=== PATIENT | female | born 1995 | race Caucasian/White ===

== ENCOUNTER 2019-04-24 07:39 | Emergency (ER) | payer BC, MEDICAID, SELFPAY ==
[2019-04-24 07:42] VITALS: BP 110/59; PULSE 96; RESP 16; TEMP 36.7; O2SAT 97; BMI 22.3
--- NOTE | 2019-04-24 07:45 | W.ED.DENTAL ---
HPI - Dental/Oral General: Chief complaint: Dental/Oral Stated complaint: DENTAL PAIN Time Seen by Provider: 04/24/19 07:45 Source: patient Mode of arrival: ambulatory Limitations: no limitations History of Present Illness: HPI Narrative: Patient is a 24-year-old female who presents to ED today with complaints of left lower wisdom tooth pain over the past 5 days. States she currently has a dentist appointment on the at [facility] but wants something for pain. MD Complaint: tooth pain Teeth map: 1. Onset (ago): day(s) Duration: constant Relieving factors: nothing Exacerbating factors: nothing Associated symptoms: Reports no associated symptoms; Denies ear or mastoid pain, fever(s) or painful swallowing Review of Systems Const: Denies: fever or chills Eyes: Denies: change in vision or blurry vision ENMT: Denies: throat pain, enlarged tonsils, painful swallowing, oral sores/lesions, ear pain, nasal discharge, nasal congestion or facial/sinus pain Card: Denies: chest pain, palpitations, irregular heart rhythm, edema, lightheadedness, syncope or pre-syncope Resp: Denies: shortness of breath, productive cough or chest congestion GI: Denies: nausea or vomiting Musc: Denies: joint pain Skin/Breast: Denies: rash Neuro: Denies: headache PFSH ED PFSH: Social History Smoking and tobacco status: current every day smoker Female Reproductive History: Date of last menstrual period: 04/23/19 Physical Exam Const: COMMON NORMALS: no apparent distress, average body habitus, oriented x3, no limitations, alert and well nourished HENMT: COMMON NORMALS: normocephalic, head/scalp atraumatic, hearing grossly normal bilaterally, external ears normal, EAC's normal, TM's normal bilaterally, external nose normal, nasal mucous membranes and turbinates normal, moist oral mucous membranes, oropharynx normal and gingiva normal HEAD & SCALP: normocephalic and atraumatic NOSE: external nose normal and nasal mucous membranes and turbinates normal EXTERNAL EAR: Yes external ears normal EXTERNAL AUDITORY CANAL: EAC's normal TYMPANIC MEMBRANE: TM's normal bilaterally THROAT: posterior oropharynx normal, tonsils normal and uvula midline OTHER: Patient has an impacted left lower molar. There is no surrounding gingival swelling. No drainage or abscess noted. No buccal mucosal swelling. Neuro: COMMON NORMALS: oriented x3 SENSORIUM/ORIENTATION: Yes alert Course Vital Signs: Vital signs: Vital Signs Temperature 98.1 F 04/24/19 07:42 Pulse Rate 96 04/24/19 07:42 Respiratory Rate 16 04/24/19 07:42 Blood Pressure 110/59 04/24/19 07:42 Pulse Oximetry 97 04/24/19 07:42 MDM - Dental/Oral MDM Narrative: Medical decision making narrative: I told patient I would be willing to write her for some diclofenac to help with her discomfort in addition I recommend using Orajel and warm compresses until she can get into her dentist. I told her I do not write for controlled pain medications for dental pain. Patient shortly after I left the room eloped from the ED. Discharge Plan Discharge Patient Disposition: Left Against Medical Advice Clinical Impression: Impacted tooth Condition: Stable Discharge Orders: Discharge Order (Routine); Ordered 04/24/19 Ordered By: Maria C Hebert Referrals: Alondra Lorenzo APN [Family Provider] - Joselo Fuentes FNP [Primary Care Provider] - Discharge Date/Time: 04/24/19 07:56 Coding Level of Care Code ED Clinical Services Professional for Peter Loja
--- NOTE | 2019-04-24 07:53 | PC.NURSE ---
After ED provider left pt's room pt left ER. Pt did not stop to explain to the nurse reasons for leaving. Pt did not sign AMA form
== END 2019-04-24 07:56 | disposition left against medical advice (07) ==
PROVIDERS: Emergency Provider Physician Assistant; Family Provider Nurse Practitioner; PCP Nurse Practitioner Family
DX: K01.1 Impacted teeth (principal); F17.200 Nicotine dependence, unspecified, uncomplicated; Z53.29 Procedure and treatment not carried out because of patient's decision for other reasons
CPT/HCPCS: 99281

== ENCOUNTER 2019-07-14 00:12 | Emergency (ER) | payer BC, MEDICAID, SELFPAY ==
[2019-07-14 00:13] VITALS: BP 114/53; PULSE 106; RESP 20; TEMP 36.9; O2SAT 100; BMI 20.5
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
== END 2019-07-14 01:18 | disposition left against medical advice (07) ==
PROVIDERS: Emergency Provider Emergency Medicine; Family Provider Nurse Practitioner; PCP Nurse Practitioner Family
DX: S06.0X0A Concussion without loss of consciousness, initial encounter (principal); S00.83XA Contusion of other part of head, initial encounter; Z53.21 Procedure and treatment not carried out due to patient leaving prior to being seen by health care provider; Y04.2XXA Assault by strike against or bumped into by another person, initial encounter; F17.210 Nicotine dependence, cigarettes, uncomplicated
CPT/HCPCS: 12345; 99282

== ENCOUNTER 2019-09-23 18:18 | Emergency (ER) | payer BC, MEDICAID, SELFPAY ==
[2019-09-23 19:29] LABS: Basophils % 0.5 %; Eosinophils # 0.1 10^3/uL (0.0-0.8); Eosinophils % 1.1 %; Hematocrit 38.7 % (37.0-47.0); Hemoglobin 12.8 g/dL (11.5-15.3); Lymphocytes # 2.2 10^3/uL (0.8-4.8); Lymphocytes % 24.6 %; Mean Corpuscular HGB Conc 33.1 g/dL (30.0-36.0); Mean Corpuscular Hemoglobin 31.4 pg (28.0-34.0); Mean Corpuscular Volume 94.9 fL (81-99); Monocytes # 0.5 10^3/uL (0.2-0.9); Monocytes % 5.6 %; Neutrophils # 6.01 10^3/uL (1.8-7.7); Neutrophils % 67.9 %; Nucleated Red Blood Cells % 0 %; Platelet Count 229 10^3/cmm (130-400); Red Blood Count 4.08 10^6/uL (4.1-5.3); Red Cell Distribution Width 11.6 % (12.1-15.1); White Blood Count 8.9 10^3/uL (4.0-10.0)
[2019-09-23 19:30] VITALS: BP 106/61; PULSE 86; RESP 14; TEMP 36.9; O2SAT 100; BMI 20.9
[2019-09-23 19:59] LABS: Alanine Aminotransferase 18 U/L (0-33); Albumin Level 4.7 g/dL (3.5-5.2); Alkaline Phosphatase 68 IU/L (35-105); Aspartate Amino Transferase 21 U/L (0-32); Blood Urea Nitrogen 13 mg/dL (6-20); Calcium 9.3 mg/dL (8.5-10.5); Carbon Dioxide 24 mmol/L (22-29); Chloride 101 mmol/L (98-107); Creatinine Clr Calc Pharmacy 150.5162; Globulin 2.4 g/dL (1.3-4.6); Glomerular Filtration Rate 151.6 mL/min (90-130); Glucose 68 mg/dL (65-115); Osmolality Calculated 278 mOsm/kg (285-295); Sodium 137 mmol/L (136-145); Total Bilirubin 0.2 mg/dL (0.15-1.2); Total Protein 7.1 g/dL (6.6-8.7)
[2019-09-23 20:09] LABS: Anion Gap 15.8 (5-19); Potassium 3.8 mmol/L (3.5-5.1)
== END 2019-09-23 22:20 ==
LOC: ER 18:27
PROVIDERS: Physician Assistant; Emergency Provider Emergency Medicine; PCP Nurse Practitioner
DX: Z53.21 Procedure and treatment not carried out due to patient leaving prior to being seen by health care provider (principal)
CPT/HCPCS: 36415; 76801; 80053; 84702; 85025; 86900; 99281

== ENCOUNTER 2019-10-11 12:03 | Emergency (ER) | payer BC, MEDICAID, SELFPAY ==
[2019-10-11 12:09] VITALS: BP 96/63; PULSE 100; RESP 18; TEMP 36.8; O2SAT 97; BMI 21.6
--- NOTE | 2019-10-11 12:14 | ED_ITS ---
HPI - Abdominal Pain General: Chief Complaint: Abdominal Pain Stated Complaint: 13 WEEKE PREG AND ABD PAIN Time Seen by Provider: 10/11/19 12:14 History of Present Illness: HPI narrative: 24-year-old female presents ER complaining of abdominal pain. 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 She states this began after she was lifting some heavy boxes at work most of the pain is in the lower abdomen suprapubic. She denies any dysuria urgency or frequency she has no nausea vomiting or diarrhea she has not had any constipation she not had any history of any GI issues she denies any difficulty with bowel bladder. She not recently been ill or had any cough or respiratory issues. MD elicited complaint: abdominal pain Pertinent past history: other (Recent heavy lifting) Onset (ago): day(s) Pain Consistency: constant Location: Suprapubic Severity: moderate Quality: aching Radiation: none Migration to: no migration Exacerbating factors: movement Relieving factors: rest Associated Symptoms: Reports GI cramping; Denies change in bowel habits, change in stool character, coffee ground emesis, constipation, diarrhea, dyspepsia, dysuria, fever(s), heartburn, hematochezia, hematuria, hematemesis, loose stools, melena, nausea, poor appetite and vomiting Related Data: Date of Last Menstrual Period: 06/11/19 Review of Systems Const: Denies: fever(s) ENMT: Denies: throat pain, ear or mastoid pain, nasal discharge or nasal congestion Card: Denies: chest pain, edema, dyspnea on exertion or orthopnea Resp: Denies: dyspnea, productive cough or non-productive cough GI: Reports: GI cramping; Denies: nausea, vomiting, hematemesis, coffee ground emesis, heartburn, diarrhea, constipation, change in bowel habits, change in stool character, hematochezia or melena : Denies: dysuria or hematuria Skin/Breast: Denies: rash or pruritus PFSH ED PFSH: Medical History (Updated 10/13/19 @ 06:46 by Derrick Musa DO) Asthma Surgical History (Updated 10/13/19 @ 06:46 by Derrick Musa DO) H/O knee surgery 2004-Performed in [place], [place] H/O oral surgery 2016- Performed in [place], [place] 2009- Performed in [place] Social History Smoking and tobacco status: current every day smoker e-cigarettes Female Reproductive History: Date of last menstrual period: 06/11/19 Physical Exam Const: COMMON NORMALS: no acute distress GENERAL APPEARANCE: cooperative and comfortable ORIENTATION/CONSCIOUSNESS: Yes awake, Yes oriented to person, Yes oriented to place and Yes oriented to time HENMT: COMMON NORMALS: normocephalic, atraumatic, hearing grossly normal bilaterally, external ears normal, EAC's normal, TM's normal bilaterally, Normal nasal mucous membranes and turbinates present, moist oral mucous membranes and oropharynx normal HEAD & SCALP: normocephalic and atraumatic NOSE: Normal nasal mucous membranes and turbinates present EXTERNAL EAR: Yes external ears normal EXTERNAL AUDITORY CANAL: EAC's normal TYMPANIC MEMBRANE: TM's normal bilaterally Eye: COMMON NORMALS: Equal, round and reactive pupils present, EOMs intact bilaterally, conjunctivae normal and no scleral icterus CONJUNCTIVA: Yes conjunctivae normal PUPIL: Yes Equal, round and reactive pupils present Neck/C-Spine: COMMON NORMALS: full ROM, no lymphadenopathy, supple and no JVD Lymph: LYMPHATIC: no lymphadenopathy noted and no lymphedema noted Resp: COMMON NORMALS: normal respiratory effort, No retractions, No use of accessory muscles and clear to auscultation bilaterally AUSCULTATION: clear to auscultation bilaterally Cardio: COMMON NORMALS: no JVD, regular rate, regular rhythm and No murmurs present (Cardio) RATE: regular rate RHYTHM: regular rhythm GI: COMMON NORMALS: Soft to palpation and No hepatosplenomegaly present AUSCULTATION: Yes normoactive bowel sounds PALPATION: Yes Soft to palpation, No Tenderness to palpation present (GI), No Guarding due to palpation present (GI) and Yes No hepatosplenomegaly present OTHER: Reproducible abdominal pain with palpation at the pubic symphysis. And with light pressure in the suprapubic area. Extremity: COMMON NORMALS: normal to inspection, capillary refill normal, no clubbing, cyanosis or edema, no calf tenderness and no pedal edema Neuro: SENSORIUM/ORIENTATION: Yes oriented to person, Yes oriented to place and Yes oriented to time Skin: COMMON NORMALS: no rashes or lesions noted GENERAL SKIN EXAM: no rashes or lesions noted Course Vital Signs: Vital signs: Vital Signs Temperature 98.2 F 10/11/19 12:09 Pulse Rate 80 10/11/19 15:03 Respiratory Rate 18 10/11/19 15:03 Blood Pressure 104/65 10/11/19 15:03 Pulse Oximetry 98 10/11/19 15:03 MDM - Abdominal Pain MDM Narrative: Medical decision making narrative: Initial attempt with Doppler heart tones unsuccessful. Bedside ultrasound done to confirm heart tones and intrauterine , findings showed twin gestation with heart activity in both in the 160s to 180s. Formal OB ultrasound done confirms twin gestation. Patient was not aware of this she was informed. As to her abdominal discomfort that she presented with that I think that is abdominal wall pain from heavy lifting urine is unremarkable. Encouraged patient to follow-up with her VAC PRESS OPERATOR as soon as she is able. Lab Data: Labs: Lab Results 10/11/19 10/11/19 10/11/19 Range/Units 12:50 12:50 12:50 WBC 9.5 (4.0-10.0) 10^3/ uL RBC 3.94 L (4.1-5.3) 10^6/u L Hgb 12.1 (11.5-15.3) g/dL Hct 36.8 L (37.0-47.0) % MCV 93.4 (81-99) fL MCH 30.7 (28.0-34.0) pg MCHC 32.9 (30.0-36.0) g/dL RDW 11.5 L (12.1-15.1) % Plt Count 227 (130-400) 10^3/c mm MPV 11.1 H (7.4-10.4) fL Neut % (Auto) 67.3 % Lymph % (Auto) 24.6 % [place] % (Auto) 5.7 % Eos % (Auto) 1.0 % Baso % (Auto) 0.3 % Neut # (Auto) 6.37 (1.8-7.7) 10^3/u L Lymph # (Auto) 2.3 (0.8-4.8) 10^3/u L [place] # (Auto) 0.5 (0.2-0.9) 10^3/u L Eos # (Auto) 0.1 (0.0-0.8) 10^3/u L Baso # (Auto) 0.0 (0.0-0.1) 10^3/u L Nucleated RBC % (a uto) 0 % Nucleated RBCs # 0.0 /100WBC Ser , Joey i-Qnt [id number] mIU/mL Urine Color Yellow (Yellow) Urine Appearance Hazy A (CLEAR) Urine pH 8 H (5-7) Ur Specific Gravit y 1.015 (1.005-1.030) Urine Protein Neg (Negative) Urine Glucose (UA) Norm (Normal) Urine Ketones Negative (Negative) Urine Blood Neg (Negative) Urine Nitrate Negative (Negative) Urine Bilirubin Neg (NEGATIVE) Prot Sulfosalicyli c Acd Negative (Negative) Urine Urobilinogen Norm (Negative) mg/dL Ur Leukocyte Bhargavi ase 2+ H (Negative) Urine RBC None (0-2) /hpf Urine WBC 5-10 H (0-5) /hpf Ur Squamous Epith Cells 15-25 H (0-5) Amorphous Sediment 1+ Urine Bacteria 1+ H (NONE) Discharge Plan Discharge Patient Disposition: Home Clinical Impression: Abdominal wall pain in suprapubic region, Twin gestation in first trimester Condition: Stable Prescriptions: New hydrocodone-acetaminophen 5-325 mg tablet 1 tab PO Q6H PRN (Reason: pain) Qty: 10 RF: 0 No Action Spiriva with HandiHaler 18 mcg capsule, w/inhalation device 1 cap INHALATION DAILY RF: 0 amoxicillin 500 mg capsule 500 mg PO TID 10 Days Qty: 30 RF: 0 albuterol sulfate [ProAir HFA] 90 mcg/actuation Hfa Aerosol Inhaler 1 - 2 puff INHALATION Q4H PRN (Reason: Shortness Of Breath) RF: 0 Gummies 400 mcg-35 mg- 25 mg-5 mg Tablet,Chewable 2 tab PO DAILY RF: 0 Tylenol Extra Strength 500 mg PO PRN RF: 0 Discharge Orders: Discharge Order (Routine); Ordered 10/11/19 Ordered By: Derrick Musa Referrals: Alondra Lorenzo TEA TREE FARMER [Primary Care Provider] - Discharge Diet: Advance as tolerated Discharge Activity: Increase activity as tolerated Activity Restrictions/Additional Instructions: Rest apply ice and heat to the lower abdominal wall as needed can use pain medication prescribed today. Recommend you follow-up with your VAC PRESS OPERATOR as soon as you are able to let him know about the twin gestation. Discharge Date/Time: 10/11/19 15:06 Coding Level of Care Code ED Llama Farmer for Peter Loja
[2019-10-11 13:03] VITALS: RESP 18
[2019-10-11] MEDS: morphine 4 mg/mL SDV 1 mL IVP (13:03)
[2019-10-11 13:09] LABS: Basophils % 0.3 %; Eosinophils # 0.1 10^3/uL (0.0-0.8); Hematocrit 36.8 % (37.0-47.0); Hemoglobin 12.1 g/dL (11.5-15.3); Lymphocytes # 2.3 10^3/uL (0.8-4.8); Lymphocytes % 24.6 %; Mean Corpuscular HGB Conc 32.9 g/dL (30.0-36.0); Mean Corpuscular Hemoglobin 30.7 pg (28.0-34.0); Mean Corpuscular Volume 93.4 fL (81-99); Mean Platelet Volume 11.1 fL (7.4-10.4); Monocytes # 0.5 10^3/uL (0.2-0.9); Monocytes % 5.7 %; Neutrophils # 6.37 10^3/uL (1.8-7.7); Neutrophils % 67.3 %; Nucleated Red Blood Cells % 0 %; Platelet Count 227 10^3/cmm (130-400); Red Blood Count 3.94 10^6/uL (4.1-5.3); Red Cell Distribution Width 11.5 % (12.1-15.1); White Blood Count 9.5 10^3/uL (4.0-10.0)
--- NOTE | 2019-10-11 13:57 | USR_ITS ---
PROCEDURE INFORMATION: Exam: US First Trimester, Transabdominal. Additional Gestation. Exam date and time: 10/11/2019 2:29 PM Age: 24 years old Clinical indication: complicated by abdominal or pelvic pain; Right lower quadrant; First trimester; Gestational age or lmp: By us> baby a 8wks 3 days, baby b 8wks 4 days; ; Patient HX: Lmp unclear; Additional info: Bedside US ppears to have twins TECHNIQUE: Imaging protocol: Real-time transabdominal obstetrical ultrasound of the maternal pelvis and a first trimester with image documentation. Additional gestation was evaluated. COMPARISON: US OB Limited [id number] 03/08/2016 11:00 AM FINDINGS: There is a twin living diamniotic intrauterine . Twin A has a crown-rump length of 1.9 cm corresponding to 8 weeks and 3 days. Twin A has a heart rate of 171 bpm. There is a yolk sac. Twin B has a crown-rump length of 2 cm corresponding to 8 weeks and 4 days. heart rate of 160 bpm is identified. There is a yolk sac. The gestational sac of Twin A is lower than that of twin B. No subchorionic bleed. No free fluid in the pelvis. US/US OB <= 14 wk fetus twins IMPRESSION: There is a twin living intrauterine .
[2019-10-11 14:29] LABS: Specific Gravity, Urine 1.015 (1.005-1.030); Urine Appearance Hazy (CLEAR); Urine Color Yellow (Yellow); pH Urine 8 (5-7)
[2019-10-11 14:30] LABS: Add Urine Culture? No; Add Urine Microscopic? YES; Amorphous Sediment Urine 1+; Bacteria Urine 1+; Bilirubin Urine Neg (NEGATIVE); Blood Urine Neg (Negative); Glucose Urine UA Norm (Normal); Ketones Urine Negative (Negative); Leukocyte Esterase Urine 2+ (Negative); Nitrate Urine Negative (Negative); Protein Urine Neg (Negative); Squamous Epithelial Cell Urine 15-25 (0-5); Sulfosalicylic Acid Urine Negative (Negative); Urobilinogen Urine Norm (Negative)
[2019-10-11 15:03] VITALS: BP 104/65; PULSE 80; RESP 18; O2SAT 98
== END 2019-10-11 15:06 | disposition home or self-care (01) ==
PROVIDERS: Emergency Provider Family Medicine; PCP Nurse Practitioner
DX: O26.891 Other specified pregnancy related conditions, first trimester (principal); R10.2 Pelvic and perineal pain; O30.001 Twin pregnancy, unspecified number of placenta and unspecified number of amniotic sacs, first trimester; O99.331 Smoking (tobacco) complicating pregnancy, first trimester; F17.290 Nicotine dependence, other tobacco product, uncomplicated; Z3A.14 14 weeks gestation of pregnancy
CPT/HCPCS: 12345; 76801; 76802; 81001; 81003; 84702; 85025; 96374; 99282; 99283; J2270

== ENCOUNTER 2019-11-14 13:55 | Inpatient (IN) | payer BC, MEDICAID, SELFPAY ==
[2019-11-14] VITALS (22 sets, daily range): BP systolic 78–122; BP diastolic 38–74; PULSE 74–115; RESP 15–24; TEMP 37.2–39.4; O2SAT 97–100; BMI 24.7
--- NOTE | 2019-11-14 14:25 | US_ITS ---
WS: [id number] Obstetrical ultrasound, limited. HISTORY: Vaginal bleeding with fever. COMPARISON: 10/11/2019. The twin intrauterine gestation is no longer present. Heterogeneous material now present in the endom etrium. Consistent with retained products of conception. No cardiac activity or poles are ident ified. There is a small amount of free fluid in the cul-de-sac. Small amount of retained products nicole ng the endocervical region. US/US pelvic with transvaginal IMPRESSION: 1. Incomplete spontaneous of the twin gestation. Twins were described on 10/11/2019. 2. No cardiac activity.
[2019-11-14] MEDS: morphine 4 mg/mL SDV 1 mL IVP ×2 (14:28→16:13)
[2019-11-14] MEDS: ondansetron 2 mg/ML SDV 2 mL 4 MG IVP (14:29)
[2019-11-14 14:36] LABS: Basophils % 0.2 %; Eosinophils % 0.2 %; Hematocrit 35.6 % (37.0-47.0); Hemoglobin 11.8 g/dL (11.5-15.3); Lymphocytes # 0.8 10^3/uL (0.8-4.8); Lymphocytes % 5.8 %; Mean Corpuscular HGB Conc 33.1 g/dL (30.0-36.0); Mean Corpuscular Volume 93.4 fL (81-99); Mean Platelet Volume 11.2 fL (7.4-10.4); Monocytes # 0.8 10^3/uL (0.2-0.9); Monocytes % 6.2 %; Neutrophils # 11.83 10^3/uL (1.8-7.7); Neutrophils % 87.2 %; Nucleated Red Blood Cells % 0 %; Platelet Count 184 10^3/cmm (130-400); Red Blood Count 3.81 10^6/uL (4.1-5.3); Red Cell Distribution Width 11.5 % (12.1-15.1); White Blood Count 13.6 10^3/uL (4.0-10.0)
--- NOTE | 2019-11-14 14:37 | W.ED.FEMALGU ---
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 She is also been having dysuria, hematuria, and vaginal bleeding. She denies a fever but was febrile on arrival to the emergency department. She went to the urgent care and they did a urinalysis and when she was told that she had a urinary tract infection. However because of her severe pain she was sent to the emergency department for evaluation. She denies nausea or vomiting MD elicited complaint: dysuria, UTI and vaginal bleeding Pertinent past history: pyelonephritis Associated symptoms: Reports abdominal pain and nausea; Deny headache(s) Date of Last Menstrual Period: 06/11/19 Review of Systems General: Reports: 10 or more systems reviewed and unremarkable except in HPI and below Const: Denies: fever(s), chills or body aches Eyes: Denies: change in vision or blurry vision ENMT: Denies: throat pain, enlarged tonsils, odynophagia, hoarseness, mouth pain or swelling of lips/tongue Card: Denies: palpitations, irregular heart rhythm, edema or swelling of feet/ankles Resp: Denies: dyspnea, productive cough or non-productive cough GI: Reports: abdominal pain and nausea; Denies: vomiting : Reports: flank pain, dysuria, urinary urgency, urinary hesitancy and vaginal bleeding; Denies: difficulty voiding or urinary frequency Musc: Denies: neck pain, back pain or extremity swelling Skin/Breast: Denies: rash, pruritus or erythema Neuro: Denies: headache(s), numbness in extremities or weakness in extremities Endo: Denies: polyuria, polydipsia or tired all the time PFS ED PFSH: Medical History Asthma Surgical History H/O knee surgery 2004-Performed in [place], [place] H/O oral surgery 2015- Performed in [place], [place] 2009- Performed in [place] Social History Smoking and tobacco status: current every day smoker e-cigarettes Female Reproductive History: Date of last menstrual period: 06/11/19 Physical Exam Const: COMMON NORMALS: average body habitus, patient oriented x3, no limitations, healthy appearing, alert and well nourished GENERAL APPEARANCE: in distress (painful distress) HENMT: COMMON NORMALS: normocephalic, atraumatic and moist oral mucous membranes HEAD & SCALP: normocephalic and atraumatic Neck/C-Spine: COMMON NORMALS: no meningeal signs and no JVD Resp: COMMON NORMALS: normal respiratory effort, No retractions, No use of accessory muscles, clear to auscultation bilaterally and percussion normal AUSCULTATION: clear to auscultation bilaterally PERCUSSION: percussion normal Cardio: COMMON NORMALS: no JVD, regular rhythm, S1 normal heart sound present, S2 normal heart sound present, No gallops present (Cardio), No clicks present (Cardio), No murmurs present (Cardio), No rub (Cardio) and Peripheral pulses 2+ throughout RATE: tachycardic RHYTHM: regular rhythm HEART SOUNDS: S1 normal heart sound present and S2 normal heart sound present PERIPHERAL PULSES: Peripheral pulses 2+ throughout GI: COMMON NORMALS: Normal to inspection, nondistended, normoactive bowel sounds present, Soft to palpation, non-tender, No hepatosplenomegaly present, no masses and no bruits PALPATION: Yes Soft to palpation and Yes No hepatosplenomegaly present : BLADDER/KIDNEY EXAM: Yes CVA tenderness on the right Back/Pelvis: GENERAL BACK: Yes CVA tenderness Extremity: COMMON NORMALS: normal to inspection, full ROM, capillary refill normal, no calf tenderness and no pedal edema Neuro: COMMON NORMALS: patient oriented x3 SENSORIUM/ORIENTATION: Yes alert MENINGEAL SIGNS: Yes no meningeal signs Course Reevaluation(s): Reevaluation #1: Discussed her lab and imaging findings with her. She is having a spontaneous , also has pyelonephritis. I advised that she be admitted for evaluation of both. 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 Time: 16:45 Consultations: Consultation #1: Dr. Wilde, supervisor metal furniture fabrication prevention specialist. He kindly accepted the patient to his service. He was able to convince the patient on the need for hospital admission Time: 17:07 Vital Signs: Vital signs: Vital Signs Temperature 98.9 F 11/14/19 22:53 Pulse Rate 93 11/14/19 23:53 Respiratory Rate 16 11/14/19 23:54 Blood Pressure 90/42 11/14/19 23:53 Pulse Oximetry 97 11/15/19 00:03 MDM - Female MDM Narrative: Medical decision making narrative: Patient is a 24-year-old female who unfortunately came into the emergency department having a spontaneous . She also has acute pyelonephritis. Getting her pain under control is extremely difficult and she required multiple intravenous narcotic medications and her pain was not still well controlled. Because of this and after conversation with the supervisor metal furniture fabrication she finally agreed to be admitted to the hospital as she had initially said she did not want to be admitted. She was given a dose of intravenous ceftriaxone. Medical Records: Attestation: I reviewed the patient's medical records. Lab Data: Attestation: I reviewed the patient's lab results. Labs: Lab Results 11/14/19 11/14/19 11/14/19 Range/Units 14:17 14:17 14:17 WBC 13.6 H (4.0-10.0) 10^3/ uL RBC 3.81 L (4.1-5.3) 10^6/u L Hgb 11.8 (11.5-15.3) g/dL Hct 35.6 L (37.0-47.0) % MCV 93.4 (81-99) fL MCH 31.0 (28.0-34.0) pg MCHC 33.1 (30.0-36.0) g/dL RDW 11.5 L (12.1-15.1) % Plt Count 184 (130-400) 10^3/c mm MPV 11.2 H (7.4-10.4) fL Neut % (Auto) 87.2 % Lymph % (Auto) 5.8 % Nance % (Auto) 6.2 % Eos % (Auto) 0.2 % Baso % (Auto) 0.2 % Neut # (Auto) 11.83 H (1.8-7.7) 10^3/u L Lymph # (Auto) 0.8 (0.8-4.8) 10^3/u L Nance # (Auto) 0.8 (0.2-0.9) 10^3/u L Eos # (Auto) 0.0 (0.0-0.8) 10^3/u L Baso # (Auto) 0.0 (0.0-0.1) 10^3/u L Nucleated RBC % (a uto) 0 % Nucleated RBCs # 0.0 /100WBC Sodium 132 L (136-145) mmol/L Potassium 3.7 (3.5-5.1) mmol/L Chloride 100 (98-107) mmol/L Carbon Dioxide 22 (22-29) mmol/L Anion Gap 13.7 (5-19) BUN 12 (6-20) mg/dL Creatinine 0.5 (0.5-0.9) mg/dL GFR Calculation 151.6 H (90-130) mL/min Glucose 117 H (65-115) mg/dL Calculated Osmolal ity 271 L (285-295) mOsm/k g Lactate 1.8 (0.5-2.2) mmol/L Calcium 8.5 (8.5-10.5) mg/dL Total Bilirubin 0.6 (0.15-1.2) mg/dL AST 16 (0-32) U/L ALT 14 (0-33) U/L Alkaline Phosphata se 67 (35-105) IU/L Total Protein 7.2 (6.6-8.7) g/dL Albumin 4.1 (3.5-5.2) g/dL Globulin 3.1 (1.3-4.6) g/dL Lipase 11 L (13-60) U/L Procalcitonin 0.06 (0-0.5) ng/mL Urine Color (Yellow) Urine Appearance (CLEAR) Urine pH (5-7) Ur Specific Gravit y (1.005-1.030) Urine Protein (Negative) Urine Glucose (UA) (Normal) Urine Ketones (Negative) Urine Blood (Negative) Urine Nitrate (Negative) Urine Bilirubin (NEGATIVE) Urine Urobilinogen (Negative) mg/dL Ur Leukocyte Bhargavi ase (Negative) Urine RBC (0-2) /hpf Urine WBC (0-5) /hpf Ur Squamous Epith Cells (0-5) Amorphous Sediment Urine Bacteria (NONE) Blood Type Rho(D) Type 11/14/19 11/14/19 Range/Units 15:26 16:40 WBC (4.0-10.0) 10^3/ uL RBC (4.1-5.3) 10^6/u L Hgb (11.5-15.3) g/dL Hct (37.0-47.0) % MCV (81-99) fL MCH (28.0-34.0) pg MCHC (30.0-36.0) g/dL RDW (12.1-15.1) % Plt Count (130-400) 10^3/c mm MPV (7.4-10.4) fL Neut % (Auto) % Lymph % (Auto) % Nance % (Auto) % Eos % (Auto) % Baso % (Auto) % Neut # (Auto) (1.8-7.7) 10^3/u L Lymph # (Auto) (0.8-4.8) 10^3/u L Nance # (Auto) (0.2-0.9) 10^3/u L Eos # (Auto) (0.0-0.8) 10^3/u L Baso # (Auto) (0.0-0.1) 10^3/u L Nucleated RBC % (a uto) % Nucleated RBCs # /100WBC Sodium (136-145) mmol/L Potassium (3.5-5.1) mmol/L Chloride (98-107) mmol/L Carbon Dioxide (22-29) mmol/L Anion Gap (5-19) BUN (6-20) mg/dL Creatinine (0.5-0.9) mg/dL GFR Calculation (90-130) mL/min Glucose (65-115) mg/dL Calculated Osmolal ity (285-295) mOsm/k g Lactate (0.5-2.2) mmol/L Calcium (8.5-10.5) mg/dL Total Bilirubin (0.15-1.2) mg/dL AST (0-32) U/L ALT (0-33) U/L Alkaline Phosphata se (35-105) IU/L Total Protein (6.6-8.7) g/dL Albumin (3.5-5.2) g/dL Globulin (1.3-4.6) g/dL Lipase (13-60) U/L Procalcitonin (0-0.5) ng/mL Urine Color Yellow (Yellow) Urine Appearance Cloudy (CLEAR) Urine pH 5 (5-7) Ur Specific Gravit y 1.010 (1.005-1.030) Urine Protein 1+ H (Negative) Urine Glucose (UA) Norm (Normal) Urine Ketones Negative (Negative) Urine Blood 2+ H (Negative) Urine Nitrate Positive H (Negative) Urine Bilirubin Neg (NEGATIVE) Urine Urobilinogen Norm (Negative) mg/dL Ur Leukocyte Bhargavi ase 2+ H (Negative) Urine RBC 0-4 H (0-2) /hpf Urine WBC Too numerous to c nt H (0-5) /hpf Ur Squamous Epith Cells 0-4 H (0-5) Amorphous Sediment Not Reportable Urine Bacteria 4+ H (NONE) Blood Type O Positive Rho(D) Type Positive Imaging Data: US OB: Radiologist's impression: [place] [address] Ultrasound Report Signed Patient: Suzie Arana #: [id number] : 1995Acct#:[id number] Age/Sex: 24 M Date: 11/14/19 Loc: [facility]/Bed: Attending Dr: Ordering Provider/Ordering MD: Shai Swayer [place], [facility] [place]: [place]/14/19 Procedure(s): US pelvic with transvaginal Accession Number(s): [id number] Report Number: [id number] WS: [id number] Obstetrical ultrasound, limited. HISTORY: Vaginal bleeding with fever. COMPARISON: 10/11/2019. The twin intrauterine gestation is no longer present. Heterogeneous material now present in the endometrium. Consistent with retained products of conception. No cardiac activity or poles are identified. There is a small amount of free fluid in the cul-de-sac. Small amount of retained products along the endocervical region. US/US pelvic with transvaginal IMPRESSION: 1. Incomplete spontaneous of the twin gestation. Twins were described on 10/11/2019. 2. No cardiac activity. Dictated By:Anum Rosado DO Signed By:Anum Rosado DOSigned Date/Time:11/14/19 1536 DD/ 1531 CT Abd/Pel: Radiologist's impression: [facility] [address] [place] [address] CT Scan Report Signed Patient: Suzie Arana #: [id number] : 1995Acct#:[id number] Age/Sex: 24 / FADM Date: 11/14/19 Loc: [facility]/Bed: Attending Dr: Ordering Provider/Ordering MD: Shai Sawyer MD, [facility] [place] of Service: 11/14/19 Procedure(s): CT abdomen pelvis w con* [id number] Accession Number(s): [id number] Report Number: [id number] PROCEDURE INFORMATION: Exam: CT Abdomen And Pelvis With Contrast Exam date and time: 11/14/2019 4:52 PM Age: 24 years old Clinical indication: Abdominal pain; Right; Patient HX: C/O fever, UTI, R flank pain - spontaneous @ 15wks; Additional info: UTI, right flank pain, ? pyelonephritis, spontaneous TECHNIQUE: Imaging protocol: Computed tomography of the abdomen and pelvis with intravenous contrast. Radiation optimization: All CT scans at this facility use at least one of these dose optimization techniques: automated exposure control; mA and/or kV adjustment per patient size (includes targeted exams where dose is matched to clinical indication); or iterative reconstruction. Contrast material: OMNI 300; Contrast volume: 95 ml; Contrast route: INTRAVENOUS (IV); COMPARISON: CT Abdomen/Pelvis Renal [id number] 03/26/2017 9:04 PM RADIATION DOSE METRICS: Total DLP (mGy-cm): 302.48 FINDINGS: Lungs: Dependent atelectasis in the right lung. Pleural space: No pleural effusion. Heart: Visualized portions of the heart are unremarkable. Liver: The liver is unremarkable. Gallbladder and bile ducts: The gallbladder is unremarkable. No biliary ductal dilatation. Pancreas: The pancreas is unremarkable. No pancreatic ductal dilatation. Spleen: The spleen is unremarkable. Adrenals: The right and left adrenal glands are unremarkable. Kidneys and ureters: Multiple areas of relative decreased enhancement with a striated appearance in the right kidney with surrounding perinephric inflammation, consistent with pyelonephritis. The left kidney is unremarkable. The left distal ureter is obscured by adjacent bowel loops and soft tissue structures. The visualized left ureter is unremarkable. Stomach and bowel: No obstruction. No mucosal thickening. Appendix: Appendix not definitely visualized. No inflammatory changes in the pericecal region however. Intraperitoneal space: Small amount of free fluid in the pelvis. No free intraperitoneal air. No loculated fluid collections to suggest an abscess. Vasculature: No evidence for aortic aneurysm or aortic dissection. Hepatic veins, portal veins, splenic vein, and SMV are patent. Lymph nodes: No lymphadenopathy. Bladder: Diffuse, moderate wall thickening of the bladder. Reproductive: Small amount of mildly hyperdense debris in the endometrial canal, findings may represent retained products of conception versus hemorrhage as noted on the ultrasound done earlier on 11/14/2019. Prominent vascular structures in the pelvis which may be related to recent . Multiple subcentimeter follicles in both right and left ovaries. Bones/joints: Bilateral pars defects at L5. Findings are stable. Soft tissues: No acute abnormality in the extra-abdominal soft tissues. CT/CT abdomen pelvis w con* [id number] IMPRESSION: 1. Findings consistent with pyelonephritis in the right kidney. 2. Diffuse, moderate wall thickening of the bladder, suspicious for cystitis. Recommend correlation with laboratory findings. 3. Small amount of free fluid in the pelvis. 4. Small amount of mildly hyperdense debris in the endometrial canal, findings may represent retained products of conception versus hemorrhage as noted on the ultrasound done earlier on 11/14/2019. No evidence for active bleeding. 5. Incidental/nonacute findings are listed in the report. Radiation Dose CTDIVOL = (mGy): DLP = 302.48 (mGy-cm) Dictated By:Kaleigh Nieves MD Signed By:Kaleigh Nieves MDSigned Date/Time:11/14/191725 DD/ 24 Discharge Plan Discharge Patient Disposition: Admitted As Inpatient Admit Provider: Blake Wilde Clinical Impression: Pyelonephritis affecting in first trimester, Missed Condition: Stable Interventions: ED Discharge Assessment Last Done: 11/14/19 22:50 ED Charges Last Done: 11/14/19 18:31 Discharge Date/Time: 11/14/19 22:30 Coding Level of Care Code ED Tool Maker for Chg Fwd Exam Comprehensive
[2019-11-14 14:50] LABS: Lactate (Lactic Acid level) 1.8 mmol/L (0.5-2.2)
[2019-11-14 14:55] LABS: Procalcitonin 0.06 ng/mL (0-0.5)
[2019-11-14 15:06] LABS: Alanine Aminotransferase 14 U/L (0-33); Albumin Level 4.1 g/dL (3.5-5.2); Alkaline Phosphatase 67 IU/L (35-105); Anion Gap 13.7 (5-19); Aspartate Amino Transferase 16 U/L (0-32); Blood Urea Nitrogen 12 mg/dL (6-20); Calcium 8.5 mg/dL (8.5-10.5); Carbon Dioxide 22 mmol/L (22-29); Chloride 100 mmol/L (98-107); Globulin 3.1 g/dL (1.3-4.6); Glomerular Filtration Rate 151.6 mL/min (90-130); Glucose 117 mg/dL (65-115); Lipase 11 U/L (13-60); Osmolality Calculated 271 mOsm/kg (285-295); Potassium 3.7 mmol/L (3.5-5.1); Sodium 132 mmol/L (136-145); Total Bilirubin 0.6 mg/dL (0.15-1.2); Total Protein 7.2 g/dL (6.6-8.7)
[2019-11-14 15:38] LABS: Add Urine Microscopic? YES; Bilirubin Urine Neg (NEGATIVE); Blood Urine 2+ (Negative); Glucose Urine UA Norm (Normal); Ketones Urine Negative (Negative); Leukocyte Esterase Urine 2+ (Negative); Nitrate Urine Positive (Negative); Protein Urine 1+ (Negative); Urine Appearance Cloudy (CLEAR); Urine Color Yellow (Yellow); Urobilinogen Urine Norm (Negative); pH Urine 5 (5-7)
[2019-11-14 15:40] LABS: Add Urine Culture? Yes; Bacteria Urine 4+; RBC Urine 0-4 /hpf (0-2); Squamous Epithelial Cell Urine 0-4 (0-5); WBC Urine TOO NUMEROUS TO CNT /hpf (0-5)
[2019-11-14] MEDS: cefTRIAXone 1,000 MG in sodium chloride 0.9% (plus) 50 ML 100 MG IV (15:55)
[2019-11-14] MEDS: sodium chloride 0.9% 1,000 ML 999 ML IV (15:55)
--- NOTE | 2019-11-14 16:32 | CTR_ITS ---
PROCEDURE INFORMATION: Exam: CT Abdomen And Pelvis With Contrast Exam date and time: 11/14/2019 4:52 PM Age: 24 years old Clinical indication: Abdominal pain; Right; Patient HX: C/O fever, UTI, R flank pain - spontaneous @ 15wks; Additional info: UTI, right flank pain, ? pyelonephritis, spontaneous TECHNIQUE: Imaging protocol: Computed tomography of the abdomen and pelvis with intravenous contrast. Radiation optimization: All CT scans at this facility use at least one of these dose optimization techniques: automated exposure control; mA and/or kV adjustment per patient size (includes targeted exams where dose is matched to clinical indication); or iterative reconstruction. Contrast material: OMNI 300; Contrast volume: 95 ml; Contrast route: INTRAVENOUS (IV); COMPARISON: CT Abdomen/Pelvis Renal [id number] 03/26/2017 9:04 PM RADIATION DOSE METRICS: Total DLP (mGy-cm): 302.48 FINDINGS: Lungs: Dependent atelectasis in the right lung. Pleural space: No pleural effusion. Heart: Visualized portions of the heart are unremarkable. Liver: The liver is unremarkable. Gallbladder and bile ducts: The gallbladder is unremarkable. No biliary ductal dilatation. Pancreas: The pancreas is unremarkable. No pancreatic ductal dilatation. Spleen: The spleen is unremarkable. Adrenals: The right and left adrenal glands are unremarkable. Kidneys and ureters: Multiple areas of relative decreased enhancement with a striated appearance in the right kidney with surrounding perinephric inflammation, consistent with pyelonephritis. The left kidney is unremarkable. The left distal ureter is obscured by adjacent bowel loops and soft tissue structures. The visualized left ureter is unremarkable. Stomach and bowel: No obstruction. No mucosal thickening. Appendix: Appendix not definitely visualized. No inflammatory changes in the pericecal region however. Intraperitoneal space: Small amount of free fluid in the pelvis. No free intraperitoneal air. No loculated fluid collections to suggest an abscess. Vasculature: No evidence for aortic aneurysm or aortic dissection. Hepatic veins, portal veins, splenic vein, and SMV are patent. Lymph nodes: No lymphadenopathy. Bladder: Diffuse, moderate wall thickening of the bladder. Reproductive: Small amount of mildly hyperdense debris in the endometrial canal, findings may represent retained products of conception versus hemorrhage as noted on the ultrasound done earlier on 11/14/2019. Prominent vascular structures in the pelvis which may be related to recent . Multiple subcentimeter follicles in both right and left ovaries. Bones/joints: Bilateral pars defects at L5. Findings are stable. Soft tissues: No acute abnormality in the extra-abdominal soft tissues. CT/CT abdomen pelvis w con* [id number] IMPRESSION: 1. Findings consistent with pyelonephritis in the right kidney. 2. Diffuse, moderate wall thickening of the bladder, suspicious for cystitis. Recommend correlation with laboratory findings. 3. Small amount of free fluid in the pelvis. 4. Small amount of mildly hyperdense debris in the endometrial canal, findings may represent retained products of conception versus hemorrhage as noted on the ultrasound done earlier on 11/14/2019. No evidence for active bleeding. 5. Incidental/nonacute findings are listed in the report. Radiation Dose CTDIVOL = (mGy): DLP = 302.48 (mGy-cm)
[2019-11-14] MEDS: iohexol 300 mg/mL 100 mL Btl IV (16:58)
[2019-11-14] MEDS: fentaNYL 50 mcg/mL INJ 2mL IVP ×2 (17:44→23:54)
--- NOTE | 2019-11-14 19:44 | PM.HP ---
Providers/Chief Complaint Primary Care Provider: Alondra Lorenzo APN Chief Complaint: urgent care sent/ uti/ preg/ temp 101 History of Present Illness Patient is a 24-year-old female, 6, para 4-0-1-4 with a known intrauterine of twins with an EDC of 05/19/2020 based on an 8-week ultrasound, which placed her at 13-2/7 weeks gestation today. She presented to the ER with a one-week history of right side/back pain. She had reported that after going to work at about 10:00 today, her pain significantly worsened. She stated that she had to leave work due to the pain and initially went to urgent care and was then sent to the ER. She states that she cespedes when she pees and if she feels like she needs to pee it makes her back hurt worse. She reports having a little spotting vaginally. She denied having any fevers at home. She stated she had not taken any medication before coming into the ER. She reports that deep breathing makes her back hurt worse. She denies any belly pain. During her evaluation in the ER, she was found to have UA findings consistent with infection. Based upon her symptoms and the urine findings, the ER physician believes she had pyelonephritis. She had been given Rocephin in the ER IV and had also been treated with morphine and fentanyl IV for the pain. During their evaluation she had also had a pelvic ultrasound performed. Based upon ultrasound there is no significant change in the size of the babies since her last ultrasound on 10/11/2019 and no cardiac activity was identified in either baby today. As a result, she was diagnosed with demise (missed ). Because of this I was consulted. At my evaluation, patient was minimally cooperative with answering questions. All she would basically state is that her back hurt and she needed something for the pain. She did give very short limited answers to questions. Review of Systems Const: Denies: fever(s) (Prior to admission) or chills (Prior to admission) ENMT: Denies: throat pain or nasal congestion Card: Denies: chest pain, palpitations or lightheadedness Resp: Denies: dyspnea, productive cough, non-productive cough or wheezing GI: Denies: abdominal pain, nausea or vomiting : Reports: dysuria, urinary frequency, urinary urgency and vaginal bleeding (Spotting); Denies: hematuria, genital pruritis or vaginal discharge Musc: Reports: back pain Neuro: Reports: headache(s); Denies: dizziness Psych: Denies: anxiety or depression Endo: Denies: polyuria, polydipsia or cold intolerance Jett/Lymph: Denies: easy bruising or easy bleeding Medications/Allergies Home Medications Medication Instructions Recorded Confirmed Last Taken Type PNV [id number] 2 tab PO DAILY 10/11/19 11/14/19 11/13/19 History [ Gummies] Allergies Allergy/AdvReac Type Severity Reaction Status Date / Time No Known Allergies Allergy Verified 11/14/19 13:26 PFSH Acute PFSH: Medical History Asthma Surgical History H/O knee surgery 2004-Performed in [place], [place] H/O oral surgery 2016- Performed in [place], [place] 2008- Performed in [place] Social History Smoking and tobacco status: current every day smoker e-cigarettes Female Reproductive History: Date of last menstrual period: 06/11/19 Vitals/I&O/Wt Last Vital Signs Temp 102.2 F H 11/14/19 14:02 Pulse 79 11/14/19 14:32 Resp 18 11/14/19 17:44 BP 111/56 11/14/19 14:32 Pulse Ox 98 11/14/19 17:44 11/14/19 11/14/19 11/14/19 06:59 14:59 22:59 Intake Total 1050 / 1050 Balance 1050 / 1050 Weight last 48 hrs Weight 140 lb Physical Exam Const: COMMON NORMALS: average body habitus, alert and well nourished GENERAL APPEARANCE: well developed and in distress (Mild emotional distress) ORIENTATION/CONSCIOUSNESS: Yes oriented to person, Yes oriented to place and Yes oriented to time Neck/C-Spine: GENERAL: Yes trachea midline Resp: COMMON NORMALS: normal respiratory effort and clear to auscultation bilaterally AUSCULTATION: clear to auscultation bilaterally Cardio: COMMON NORMALS: regular rate, regular rhythm, No gallops present (Cardio), No murmurs present (Cardio) and No rub (Cardio) RATE: regular rate RHYTHM: regular rhythm GI: COMMON NORMALS: Soft to palpation, No hepatosplenomegaly present and no masses AUSCULTATION: Yes normoactive bowel sounds PALPATION: Yes Soft to palpation, Yes Tenderness to palpation present (GI) (Mild suprapubic discomfort to palpation), Yes No hepatosplenomegaly present and No Hernia present : EXTERNAL FEMALE EXAM: No Hernia present OTHER: No uterine tenderness on abdominal palpation of the uterus Back/Pelvis: GENERAL BACK: Yes CVA tenderness (Right CVA/flank pain. No left CVA pain.) Extremity: COMMON NORMALS: no clubbing, cyanosis or edema and no calf tenderness Neuro: SENSORIUM/ORIENTATION: Yes alert, Yes oriented to person, Yes oriented to place and Yes oriented to time Psych: COMMON NORMALS: normal affect MOOD & AFFECT: Yes anxious and Yes tearful Skin: COMMON NORMALS: no rashes or lesions noted GENERAL SKIN EXAM: no rashes or lesions noted OTHER: Sweaty, damp skin Data : 11/14/19 14:17 11/14/19 14:17 Other Labs: WBC differential: Neutrophils 87.2%, lymphocytes 5.8%, monocytes 6.2% CMP: Calcium 8.5, total bili 0.6, AST 16, ALT 14, alk phos 67, total protein 7.2, albumin 4.1, lipase 11. Lactate: 1.8 Urinalysis: Cloudy, specific gravity 1.010, protein 1+, glucose negative, ketones negative, blood 2+, nitrate positive, leukocyte esterase 2+, RBC 0-4, WBC too numerous to count, bacteria 4+, squamous cells 0-4 Micro: Microbiology 11/14/19 14:17 Blood Culture - Preliminary Blood SPECIMEN COLLECTED 11/14/19 14:28 Blood Culture - Preliminary Blood SPECIMEN COLLECTED US OB: My impression: Twin intrauterine with no significant change in size compared to prior ultrasound from 10/11/2019. No cardiac activity identified. Gestational sacs are irregular in shape and smaller than seen on prior ultrasound. Consistent with missed . Radiologist's impression: Incomplete of twin gestation. No cardiac activity seen. CT Abd/Pel: Radiologist's impression: Findings consistent with pyelonephritis of the right kidney. A&P Assessment and plan (1) Pyelonephritis affecting in first trimester: Patient with urine findings consistent with infection with fever and right flank pain. CT findings suspicious for pyelonephritis. Based upon these findings she has been diagnosed with pyelonephritis. She initially received 1 dose of Rocephin in the ER. Continue with IV antibiotics (Kefzol and gentamicin). Urine culture has been performed and is pending. No evidence of stones seen on CT. Will treat with pain medication as needed. Status: Acute (2) Missed : Patient with known twin gestation at 13-2/7 weeks gestation today. Ultrasound shows demise of both twins (missed ). I briefly discussed with patient the findings on ultrasound and options of letting things pass on their own, medication to bring on miscarriage, or D&C. At this point, patient is undecided as to what she wants to do. Status: Acute Attestations Medical Necessity Statement*: Patient with pyelonephritis and parenteral narcotic pain medication for pain relief. She also has a missed of twins. Coding Level of Care Code Acute Electrical Instrument Technician for Peter Loja Diagnoses Pyelonephritis affecting in first trimester O23.01 Missed O02.1
[2019-11-14] MEDS: acetaminophen 500 mg Tablet 1000 MG PO (19:58)
[2019-11-14] MEDS: sodium chloride 0.9% 1,000 ML 200 ML IV (20:00)
[2019-11-14] MEDS: fentaNYL 50 mcg/mL INJ 2mL 75 MCG IVP (21:30)
--- NOTE | 2019-11-14 22:15 | PC.NURSE ---
vo obtained from Dr Wilde for tylenol, iv fluid bolus, and fentanyl. Per , hold on fentanyl until pt pain level reaches 8/10
--- NOTE | 2019-11-14 23:00 | PC.NURSE ---
MD in transportation escort room, MD orders to give the fentanyl and ativan at this time if patient desires, vitals reviewed with MD.
[2019-11-14] MEDS: dextrose 5%-sod chloride 0.45% 1,000 ML 125 ML IV (23:46)
--- NOTE | 2019-11-14 23:58 | PC.NURSE ---
Dr. Wilde in personal banking officer room, notified of BP and MD orders to give fentanyl for pain
[2019-11-15] VITALS (67 sets, daily range): BP systolic 0–96; BP diastolic 0–51; PULSE 82–156; RESP 16–17; TEMP 36.9–37.2; O2SAT 79–100
--- NOTE | 2019-11-15 03:20 | PC.NURSE ---
RN at bedside attempting to collect covid testing per protocol. Patient is refusing all testing and wearing a mask at this time.
[2019-11-15] MEDS: HYDROcodone-acetaminophen 5-325 mg Tablet PO ×3 (03:24→11:49)
[2019-11-15] MEDS: ceFAZolin 1,000 MG in sodium chloride 0.9% (plus) 50 ML 100 MG IV ×2 (06:20→11:47)
[2019-11-15 06:59] LABS: Basophils % 0.2 %; Eosinophils # 0.1 10^3/uL (0.0-0.8); Eosinophils % 0.4 %; Hematocrit 31.7 % (37.0-47.0); Hemoglobin 10.3 g/dL (11.5-15.3); Lymphocytes # 1.5 10^3/uL (0.8-4.8); Lymphocytes % 9.2 %; Mean Corpuscular HGB Conc 32.5 g/dL (30.0-36.0); Mean Corpuscular Hemoglobin 30.8 pg (28.0-34.0); Mean Corpuscular Volume 94.9 fL (81-99); Mean Platelet Volume 10.9 fL (7.4-10.4); Monocytes # 0.7 10^3/uL (0.2-0.9); Monocytes % 4.5 %; Neutrophils # 13.69 10^3/uL (1.8-7.7); Neutrophils % 85.1 %; Nucleated Red Blood Cells % 0 %; Platelet Count 170 10^3/cmm (130-400); Red Blood Count 3.34 10^6/uL (4.1-5.3); Red Cell Distribution Width 11.6 % (12.1-15.1); White Blood Count 16.1 10^3/uL (4.0-10.0)
[2019-11-15] MEDS: LORazepam 0.5 mg Tablet 1 MG PO (08:58)
[2019-11-15] MEDS: dextrose 5%-sod chloride 0.45% 1,000 ML 125 ML IV (08:59)
[2019-11-15 10:12] LABS: Amphetamines Screen Urine Negative (Negative); Barbiturates Screen Urine Negative (Negative); Benzodiazepines Screen Urine Negative (Negative); Cocaine Screen Urine Negative (Negative); Opiate Screen Urine Positive (Negative); PCP Screen Urine Negative (Negative); THC Screen Urine Positive (Negative)
[2019-11-15] MEDS: ketorolac 30 mg/mL INJ IVP (10:29)
--- NOTE | 2019-11-15 14:11 | PM.DCS ---
Discharge Providers Date of Admission: 11/14/19 19:58 Date of Discharge: November 15, 2019 Attending Provider at Admission: Blake Wilde MD Attending Provider at Discharge: Blake Wilde MD Primary Care Provider: Alondra Lorenzo APN Diagnoses at Discharge Discharge Diagnosis (1) Pyelonephritis affecting in first trimester: Status: Acute (2) Missed : Status: Acute Reason for Visit Reason for Visit: urgent care sent/ uti/ preg/ temp 101 Hospital Course Hospital Course: Patient was admitted to the hospital with pyelonephritis and had been found to have a missed of twins while in the ER. She was reporting significant back pain while in the ER and was initially treated with IV morphine and fentanyl. She was initially treated with Rocephin in the ER and on transfer to the floor was switched to cefazolin and gentamicin. She initially received [place] and fentanyl for breakthrough pain through the night. This morning, 11/14, patient reporting still having back pain. However, she has not had any of the IV fentanyl and is only been taking [place] but is taking it every 4 hours. She denied nausea or vomiting. She denied shortness of breath or chest pains. She denied lightheadedness or dizziness. She denied vaginal bleeding. She is wanting to go home. Physical exam: See below. Plan Urine culture is showing gram-negative rods. Antibiotics should have been covering for this. Patient has continued to have pain and has been taking pain medications on a regular basis every 4 hours. After examining her, she started reporting severe back pain needing something for pain again even though it is only been 2 hours since her last [place] dose. I discussed with her that recommendations are typically to stay until she is at least 24 hours afebrile with the back pain having resolved before switching to oral medications and potentially going home. However, with her not having any nausea and vomiting, she could potentially be switched to the oral medications and sent home, but with her degree of back pain I do not recommend that. I discussed with her that if she went home at this time, it would be AGAINST MEDICAL ADVICE. Patient states she is adamant that she does not want to stay in the hospital and wants to leave. She is signing out AGAINST MEDICAL ADVICE. Prescription for antibiotic will be called in to the pharmacy. Patient was informed that if she is unable to keep the antibiotics down, she continues to develop high fevers, she will need to come back to the hospital. I had discussed with her previously options in regards to the missed . She has stated that she wanted to go back to the doctor she had seen in [place] with a prior to take care of the missed . Physical Exam Const: COMMON NORMALS: no acute distress, average body habitus, alert and well nourished GENERAL APPEARANCE: well developed ORIENTATION/CONSCIOUSNESS: Yes oriented to person, Yes oriented to place and Yes oriented to time GI: COMMON NORMALS: Soft to palpation, non-tender, No hepatosplenomegaly present and no masses AUSCULTATION: Yes normoactive bowel sounds PALPATION: Yes Soft to palpation, Yes No hepatosplenomegaly present and No Hernia present : BLADDER/KIDNEY EXAM: Yes CVA tenderness EXTERNAL FEMALE EXAM: No Hernia present Back/Pelvis: GENERAL BACK: Yes CVA tenderness CVA tenderness: right Extremity: COMMON NORMALS: no calf tenderness Neuro: SENSORIUM/ORIENTATION: Yes alert, Yes oriented to person, Yes oriented to place and Yes oriented to time Psych: COMMON NORMALS: normal affect MOOD & AFFECT: Yes euthymic mood Skin: NARRATIVE SKIN EXAM: sweaty and warm Discharge Data Data Completed and Pending: Completed Studies During Hospitalization Category Date Time Status CT abdomen pelvis w con* [id number] Stat Cat Scan 11/14/19 16:32 Completed US pelvic with tr ansvaginal Urgent Ultrasound 11/14/19 14:25 Completed Pending at discharge Category Date Time Status Blood Culture Sta t Lab 11/14/19 14:17 Results Urine Culture Sta t Lab 11/14/19 15:26 Results Labs from last 24 hours 11/15/19 11/14/19 11/14/19 06:40 16:40 15:26 WBC 16.1 H RBC 3.34 L Hgb 10.3 L Hct 31.7 L MCV 94.9 MCH 30.8 MCHC 32.5 RDW 11.6 L Plt Count 170 MPV 10.9 H Neut % (Auto) 85.1 Lymph % (Auto) 9.2 [place] % (Auto) 4.5 Eos % (Auto) 0.4 Baso % (Auto) 0.2 Neut # (Auto) 13.69 H Lymph # (Auto) 1.5 [place] # (Auto) 0.7 Eos # (Auto) 0.1 Baso # (Auto) 0.0 Nucleated RBC % (a uto) 0 Nucleated RBCs # 0.0 Sodium Potassium Chloride Carbon Dioxide Anion Gap BUN Creatinine GFR Calculation Glucose Calculated Osmolal ity Lactate Calcium Total Bilirubin AST ALT Alkaline Phosphata se Total Protein Albumin Globulin Lipase Procalcitonin Urine Color Urine Appearance Urine pH Ur Specific Gravit y Urine Protein Urine Glucose (UA) Urine Ketones Urine Blood Urine Nitrate Urine Bilirubin Urine Urobilinogen Ur Leukocyte Bharg[place] ase Urine RBC Urine WBC Ur Squamous Epith Cells Amorphous Sediment Urine Bacteria Urine Opiates Scre en Positive H Ur Barbiturates Sc reen Negative Ur Phencyclidine S crn Negative Ur Amphetamines Sc reen Negative U Benzodiazepines Scrn Negative Urine Cocaine Scre en Negative U Marijuana (THC) Screen Positive H Blood Type O Positive Rho(D) Type Positive 11/14/19 11/14/19 11/14/19 15:26 14:17 14:17 WBC RBC Hgb Hct MCV MCH MCHC RDW Plt Count MPV Neut % (Auto) Lymph % (Auto) [place] % (Auto) Eos % (Auto) Baso % (Auto) Neut # (Auto) Lymph # (Auto) [place] # (Auto) Eos # (Auto) Baso # (Auto) Nucleated RBC % (a uto) Nucleated RBCs # Sodium 132 L Potassium 3.7 Chloride 100 Carbon Dioxide 22 Anion Gap 13.7 BUN 12 Creatinine 0.5 GFR Calculation 151.6 H Glucose 117 H Calculated Osmolal ity 271 L Lactate 1.8 Calcium 8.5 Total Bilirubin 0.6 AST 16 ALT 14 Alkaline Phosphata se 67 Total Protein 7.2 Albumin 4.1 Globulin 3.1 Lipase 11 L Procalcitonin 0.06 Urine Color Yellow Urine Appearance Cloudy Urine pH 5 Ur Specific Gravit y 1.010 Urine Protein 1+ H Urine Glucose (UA) Norm Urine Ketones Negative Urine Blood 2+ H Urine Nitrate Positive H Urine Bilirubin Neg Urine Urobilinogen Norm Ur Leukocyte Bhargavi ase 2+ H Urine RBC 0-4 H Urine WBC Too numerous to c nt H Ur Squamous Epith Cells 0-4 H Amorphous Sediment Not Reportable Urine Bacteria 4+ H Urine Opiates Scre en Ur Barbiturates Sc reen Ur Phencyclidine S crn Ur Amphetamines Sc reen U Benzodiazepines Scrn Urine Cocaine Scre en U Marijuana (THC) Screen Blood Type Rho(D) Type 11/14/19 14:17 WBC 13.6 H RBC 3.81 L Hgb 11.8 Hct 35.6 L MCV 93.4 MCH 31.0 MCHC 33.1 RDW 11.5 L Plt Count 184 MPV 11.2 H Neut % (Auto) 87.2 Lymph % (Auto) 5.8 [place] % (Auto) 6.2 Eos % (Auto) 0.2 Baso % (Auto) 0.2 Neut # (Auto) 11.83 H Lymph # (Auto) 0.8 [place] # (Auto) 0.8 Eos # (Auto) 0.0 Baso # (Auto) 0.0 Nucleated RBC % (a uto) 0 Nucleated RBCs # 0.0 Sodium Potassium Chloride Carbon Dioxide Anion Gap BUN Creatinine GFR Calculation Glucose Calculated Osmolal ity Lactate Calcium Total Bilirubin AST ALT Alkaline Phosphata se Total Protein Albumin Globulin Lipase Procalcitonin Urine Color Urine Appearance Urine pH Ur Specific Gravit y Urine Protein Urine Glucose (UA) Urine Ketones Urine Blood Urine Nitrate Urine Bilirubin Urine Urobilinogen Ur Leukocyte Bhargavi ase Urine RBC Urine WBC Ur Squamous Epith Cells Amorphous Sediment Urine Bacteria Urine Opiates Scre en Ur Barbiturates Sc reen Ur Phencyclidine S crn Ur Amphetamines Sc reen U Benzodiazepines Scrn Urine Cocaine Scre en U Marijuana (THC) Screen Blood Type Rho(D) Type Vitals: Last Vital Signs Temp 98.4 F 11/15/19 12:00 Pulse 83 11/15/19 11:56 Resp 17 11/15/19 07:27 BP 0/0 11/15/19 11:56 Pulse Ox 96 11/15/19 04:49 Discharge Plan Discharge Patient Disposition: Left Against Medical Advice Prescriptions: New hydrocodone-acetaminophen 5-325 mg Tablet 1 - 2 tab PO Q6H PRN (Reason: Moderate To Severe Pain) Qty: 30 RF: 0 ciprofloxacin HCl 500 mg tablet 500 mg PO BID 10 Days Qty: 20 RF: 0 Continued Gummies 400 mcg-35 mg- 25 mg-5 mg Tablet,Chewable 2 tab PO DAILY RF: 0 Discharge Diet: Regular Discharge Activity: Resume usual activity Activity Restrictions/Additional Instructions: Follow-up with your doctor in [place] within 1 week for treatment of the miscarriage. Finish all antibiotics Discharge Attestations Time Spent in Discharge Care*: less than 30 min Quality Metrics Clinical Quality Measures During this hospital stay, did patient experience: None Coding Level of Care Code Acute Map Compiler for Chg Fwd Diagnoses Pyelonephritis affecting in first trimester O23.01 Missed O02.1
--- NOTE | 2019-11-15 14:33 | PC.NURSE ---
AMA Dr Wilde came in to round on patient, agreed to discharge pt home with oral antibiotics and pain medications. Pt hit call light shortly after Dr Wilde left the room and was moaning and rolling in bed, requesting more pain medication. Nurse looked up MAR and reported to pt that pain meds were not due to be given again for approximately 2 more hours. Asked pt if she thought she would be okay going home. Discussed that pain meds will need to be taken as ordered, no sooner. Pt said I don't know, I just want to go home Nurse went and discussed pt's complaints of worsened pain. Dr Wilde went back to patient's room to reassess. discussed that he feels that it is in the patient's best interest to stay an additional night for pain control. Pt refused and stated she just wants to go home. Dr Wilde discussed that pt will have to sign out against medical advice at this point, discussed the likelihood of readmission, possibility that insurance may refuse to pay for hospital visit. Pt verbalized understanding and states she still wants to leave.
--- NOTE | 2019-11-15 15:34 | PC.NURSE ---
AMA Pt left floor via wheelchair at 1515
--- NOTE | 2019-11-20 13:15 | PC.RESP ---
Smoking Cessation information and a schedule of classes sent to patient.
== END 2019-11-15 15:15 | disposition left against medical advice (07) | DRG 779 ==
LOC: ER 14:06 → OBGYN 20:30
PROVIDERS: Family Medicine; Admitting Provider Obstetrics & Gynecology; PCP Nurse Practitioner; Visit Provider Obstetrics & Gynecology
DX: O02.1 Missed abortion (principal); O23.01 Infections of kidney in pregnancy, first trimester; N10 Acute pyelonephritis; Z53.29 Procedure and treatment not carried out because of patient's decision for other reasons; Z3A.13 13 weeks gestation of pregnancy; O30.001 Twin pregnancy, unspecified number of placenta and unspecified number of amniotic sacs, first trimester; O99.331 Smoking (tobacco) complicating pregnancy, first trimester; F17.290 Nicotine dependence, other tobacco product, uncomplicated
CPT/HCPCS: 12345; 36415; 74177; 76805; 76830; 76856; 80053; 80306; 81000; 81001; 83605; 83690; 84145; 85025; 86900; 87040; 87077; 87086; 87186; 87205; 96375; 99282; J0690; J0696; J1580; J1885; J2270; J2405; J3010; J7030; J7799; Q9967

== ENCOUNTER → 2020-04-07 15:00 | Outpatient (BNVA) | payer BC, MEDICAID, SELFPAY | PROVIDERS: PCP Nurse Practitioner; Visit Provider Nurse Practitioner Family | DX: Z20.2 Contact with and (suspected) exposure to infections with a predominantly sexual mode of transmission (principal) | CPT/HCPCS: 87491; 87591 ==

== ENCOUNTER → 2020-04-21 12:27 | Outpatient (BNVA) | payer BC, MEDICAID, SELFPAY | PROVIDERS: PCP Nurse Practitioner; Visit Provider Family Medicine | DX: N91.2 Amenorrhea, unspecified (principal); A54.9 Gonococcal infection, unspecified | CPT/HCPCS: 81025 ==

== ENCOUNTER 2020-08-12 09:00 | Emergency (ER) | payer BC, SELFPAY ==
[2020-08-12 09:04] VITALS: BP 117/67; PULSE 96; RESP 18; TEMP 36.6; O2SAT 98; BMI 23.0
--- NOTE | 2020-08-12 09:15 | US_ITS ---
WS: [id number] ULTRASOUND PELVIS TECHNIQUE: Transabdominal and transvaginal. ULTRASOUND PELVIS TECHNIQUE: Transabdominal. CLINICAL INFORMATION: pelvic pain : No. COMPARISON: November 14, 2019 FINDINGS: Uterus Orientation: Anteverted. Size: 8.1 cm x 4.8 cm. Masses: None. Cervix: Incidental nabothian cysts Endometrium: Normal. Endometrium thickness: 1.0 cm. Adnexa: Adnexa difficult to visualize due to bowel gas. No adnexal masses. Left ovarian cyst measurin g 1.0 x 0.9 x 0.8 cm consistent with hemorrhagic cyst. Right ovary size: 3.5 cm x 3.3 cm x 1.5 cm. Right ovary volume: 9.0 ccm3. Left ovary size: 4.2 cm x 2.4 cm x 2.1 cm. Left ovary volume: 11.2 ccm3 Free fluid: Present Other findings: None. US/US pelvic with transvaginal IMPRESSION: 1. Normal uterus. Endometrium measures 9.8 mm. 2. Incidental nabothian cysts in the cervix. 3. Normal vascularity to both ovaries. No adnexal masses. 4. Left ovarian hemorrhagic cyst/follicle measuring 1.0 x 0.9 x 0.8 cm 5. Small amount of free fluid in the cul-de-sac.
[2020-08-12] MEDS: sodium chloride 0.9% 1,000 ML 999 ML IV (09:32)
[2020-08-12 09:33] VITALS: RESP 18; O2SAT 98
[2020-08-12] MEDS: morphine 4 mg/mL SDV 1 mL IVP ×3 (09:33→12:05)
[2020-08-12] MEDS: ondansetron 2 mg/ML SDV 2 mL 4 MG IVP (09:33)
[2020-08-12 09:40] LABS: Basophils # 0.1 10^3/uL (0.0-0.1); Basophils % 0.4 %; Eosinophils # 0.3 10^3/uL (0.0-0.8); Eosinophils % 2.5 %; Hematocrit 44.1 % (37.0-47.0); Hemoglobin 14.8 g/dL (11.5-15.3); Lymphocytes # 1.7 10^3/uL (0.8-4.8); Lymphocytes % 12.8 %; Mean Corpuscular HGB Conc 33.6 g/dL (30.0-36.0); Mean Corpuscular Hemoglobin 30.8 pg (28.0-34.0); Mean Corpuscular Volume 91.9 fL (81-99); Mean Platelet Volume 11.3 fL (7.4-10.4); Monocytes # 0.5 10^3/uL (0.2-0.9); Monocytes % 3.9 %; Neutrophils # 10.81 10^3/uL (1.8-7.7); Nucleated Red Blood Cells % 0 %; Platelet Count 225 10^3/cmm (130-400); Red Cell Distribution Width 11.4 % (12.1-15.1); White Blood Count 13.5 10^3/uL (4.0-10.0)
--- NOTE | 2020-08-12 09:52 | W.ED.ABDPA2 ---
HPI - Abdominal Pain General: Chief Complaint: Abdominal Pain Stated Complaint: N/V/D ABD PAIN Time Seen by Provider: 08/12/20 09:09 History of Present Illness: HPI narrative: 25-year-old female presents emergency room complaining of periumbilical to right lower quadrant abdominal pain. She has had this for the last couple of days with nausea vomiting and diarrhea. When first came in the room she is bent over the bed she avoids any kind of movement. Her last meal was last night which she vomited. No hematochezia melena hematemesis or coffee-ground emesis no fever. She not have any dysuria urgency or frequency states she has had a problem with kidney stones in the past.She states she is not had a period for couple of months. Reviewing her old records there was a positive gonorrhea culture in late March of this year. MD elicited complaint: abdominal pain Pertinent past history: other (History of gonorrhea) Onset (ago): day(s) Pain Consistency: constant Location: Periumbilical Severity: severe Quality: cramping Radiation: none Migration to: RLQ Exacerbating factors: movement Relieving factors: rest Associated Symptoms: Reports anorexia, bloating, GI cramping and diarrhea; Denies belching, change in bowel habits, change in stool character, chills, coffee ground emesis, constipation, dyspepsia, dysuria, excessive flatus, fever(s), heartburn, hematochezia, hematuria, hematemesis, fecal incontinence, loose stools, melena, nausea, poor appetite, syncope and vomiting Related Data: Date of Last Menstrual Period: 06/11/19 Review of Systems Const: Denies: fever(s) or chills ENMT: Denies: throat pain, ear or mastoid pain, nasal discharge or nasal congestion Card: Denies: syncope Resp: Denies: dyspnea, productive cough or non-productive cough GI: Reports: diarrhea, bloating and GI cramping; Denies: nausea, vomiting, hematemesis, coffee ground emesis, heartburn, constipation, belching, excessive flatus, fecal incontinence, change in bowel habits, change in stool character, hematochezia or melena : Denies: dysuria or hematuria Skin/Breast: Denies: rash or pruritus PFS ED PFSH: Medical History (Updated 06/03/21 @ 13:52 by Derrick Musa DO) Asthma Surgical History H/O knee surgery 2005-Performed in [place], [place] H/O oral surgery 2016- Performed in [place], [place] 2009- Performed in [place] Social History Smoking and tobacco status: current every day smoker cigarettes and e-cigarettes Female Reproductive History: Date of last menstrual period: 06/11/19 Physical Exam Const: COMMON NORMALS: no acute distress GENERAL APPEARANCE: cooperative and comfortable ORIENTATION/CONSCIOUSNESS: Yes awake, Yes oriented to person, Yes oriented to place and Yes oriented to time HENMT: COMMON NORMALS: normocephalic, atraumatic, hearing grossly normal bilaterally and external ears normal HEAD & SCALP: normocephalic and atraumatic EXTERNAL EAR: Yes external ears normal Neck/C-Spine: COMMON NORMALS: no JVD Resp: COMMON NORMALS: normal respiratory effort, No retractions, No use of accessory muscles and clear to auscultation bilaterally AUSCULTATION: clear to auscultation bilaterally Cardio: COMMON NORMALS: no JVD, regular rate, regular rhythm and No murmurs present (Cardio) RATE: regular rate RHYTHM: regular rhythm GI: COMMON NORMALS: Soft to palpation and No hepatosplenomegaly present AUSCULTATION: Yes normoactive bowel sounds PALPATION: Yes Soft to palpation, No Tenderness to palpation present (GI), No Guarding due to palpation present (GI) and Yes No hepatosplenomegaly present : COMMON NORMALS: Yes no CVA tenderness BLADDER/KIDNEY EXAM: Yes no CVA tenderness EXTERNAL FEMALE EXAM: Yes normal appearance of the urethra SPECULUM EXAM - VAGINA: No vaginal bleeding and Yes Vaginal discharge present SPECULUM EXAM - CERVIX: Yes Cervical os closed, No Cervical bleeding, Yes Abnormal cervical discharge present and Yes Cervical tenderness present BIMANUAL EXAM - VAGINA & UTERUS: Yes Cervical tenderness present BIMANUAL EXAM - ADNEXA, OTHER: Yes tender on the left OB/EXTERNAL & SPECULUM: No vaginal bleeding Back/Pelvis: COMMON NORMALS: no CVA tenderness Extremity: COMMON NORMALS: normal to inspection, capillary refill normal, no clubbing, cyanosis or edema, no calf tenderness and no pedal edema Neuro: SENSORIUM/ORIENTATION: Yes oriented to person, Yes oriented to place and Yes oriented to time Skin: COMMON NORMALS: no rashes or lesions noted GENERAL SKIN EXAM: no rashes or lesions noted Course Vital Signs: Vital signs: Vital Signs Temperature 97.9 F 08/12/20 09:04 Pulse Rate 84 08/12/20 13:00 Respiratory Rate 16 08/12/20 12:07 Blood Pressure 111/53 08/12/20 13:00 Pulse Oximetry 99 08/12/20 13:00 MDM - Abdominal Pain Lab Data: Labs: Lab Results 08/12/20 08/12/20 08/12/20 Range/Units 09:34 09:34 09:34 WBC 13.5 H (4.0-10.0) 10^3/ uL RBC 4.80 (4.1-5.3) 10^6/u L Hgb 14.8 (11.5-15.3) g/dL Hct 44.1 (37.0-47.0) % MCV 91.9 (81-99) fL MCH 30.8 (28.0-34.0) pg MCHC 33.6 (30.0-36.0) g/dL RDW 11.4 L (12.1-15.1) % Plt Count 225 (130-400) 10^3/c mm MPV 11.3 H (7.4-10.4) fL Neut % (Auto) 80.0 % Lymph % (Auto) 12.8 % [place] % (Auto) 3.9 % Eos % (Auto) 2.5 % Baso % (Auto) 0.4 % Neut # (Auto) 10.81 H (1.8-7.7) 10^3/u L Lymph # (Auto) 1.7 (0.8-4.8) 10^3/u L [place] # (Auto) 0.5 (0.2-0.9) 10^3/u L Eos # (Auto) 0.3 (0.0-0.8) 10^3/u L Baso # (Auto) 0.1 (0.0-0.1) 10^3/u L Nucleated RBC % (a uto) 0 % Nucleated RBCs # 0.0 /100WBC Sodium 137 (136-145) mmol/L Potassium 3.7 (3.5-5.1) mmol/L Chloride 100 (98-107) mmol/L Carbon Dioxide 24 (22-29) mmol/L Anion Gap 16.7 (5-19) BUN 18 (6-20) mg/dL Creatinine 0.5 (0.5-0.9) mg/dL GFR Calculation 150.3 H (90-130) mL/min Glucose 95 (65-115) mg/dL Calculated Osmolal ity 286 (285-295) mOsm/k g Calcium 8.9 (8.5-10.5) mg/dL Total Bilirubin 0.3 (0.15-1.2) mg/dL AST 18 (0-32) U/L ALT 12 (0-33) U/L Alkaline Phosphata se 76 (35-105) IU/L Total Protein 8.2 (6.6-8.7) g/dL Albumin 5.0 (3.5-5.2) g/dL Globulin 3.2 (1.3-4.6) g/dL HCG, Qual Negative (Negative) Urine Color (Yellow) Urine Appearance (CLEAR) Urine pH (5-7) Ur Specific Gravit y (1.005-1.030) Urine Protein (Negative) Urine Glucose (UA) (Normal) Urine Ketones (Negative) Urine Blood (Negative) Urine Nitrate (Negative) Urine Bilirubin (Negative) Urine Urobilinogen (Negative) mg/dL Ur Leukocyte Bhargavi ase (Negative) Urine RBC (0-2) /hpf Urine WBC (0-5) /hpf Ur Squamous Epith Cells (0-5) /hpf Amorphous Sediment Urine Bacteria (NONE) /hpf Urine Mucus /hpf 08/12/20 Range/Units 10:09 WBC (4.0-10.0) 10^3/ uL RBC (4.1-5.3) 10^6/u L Hgb (11.5-15.3) g/dL Hct (37.0-47.0) % MCV (81-99) fL MCH (28.0-34.0) pg MCHC (30.0-36.0) g/dL RDW (12.1-15.1) % Plt Count (130-400) 10^3/c mm MPV (7.4-10.4) fL Neut % (Auto) % Lymph % (Auto) % [place] % (Auto) % Eos % (Auto) % Baso % (Auto) % Neut # (Auto) (1.8-7.7) 10^3/u L Lymph # (Auto) (0.8-4.8) 10^3/u L [place] # (Auto) (0.2-0.9) 10^3/u L Eos # (Auto) (0.0-0.8) 10^3/u L Baso # (Auto) (0.0-0.1) 10^3/u L Nucleated RBC % (a uto) % Nucleated RBCs # /100WBC Sodium (136-145) mmol/L Potassium (3.5-5.1) mmol/L Chloride (98-107) mmol/L Carbon Dioxide (22-29) mmol/L Anion Gap (5-19) BUN (6-20) mg/dL Creatinine (0.5-0.9) mg/dL GFR Calculation (90-130) mL/min Glucose (65-115) mg/dL Calculated Osmolal ity (285-295) mOsm/k g Calcium (8.5-10.5) mg/dL Total Bilirubin (0.15-1.2) mg/dL AST (0-32) U/L ALT (0-33) U/L Alkaline Phosphata se (35-105) IU/L Total Protein (6.6-8.7) g/dL Albumin (3.5-5.2) g/dL Globulin (1.3-4.6) g/dL HCG, Qual (Negative) Urine Color Yellow (Yellow) Urine Appearance Hazy A (CLEAR) Urine pH 5 (5-7) Ur Specific Gravit y 1.020 (1.005-1.030) Urine Protein Neg (Negative) Urine Glucose (UA) Norm (Normal) Urine Ketones Negative (Negative) Urine Blood Neg (Negative) Urine Nitrate Negative (Negative) Urine Bilirubin 1+ H (Negative) Urine Urobilinogen 1 H (Negative) mg/dL Ur Leukocyte Bhargavi ase Trace H (Negative) Urine RBC None (0-2) /hpf Urine WBC 0-4 H (0-5) /hpf Ur Squamous Epith Cells 10-15 H (0-5) /hpf Amorphous Sediment Not Reportable Urine Bacteria 1+ H (NONE) /hpf Urine Mucus 2+ /hpf Discharge Plan Discharge Patient Disposition: Home Clinical Impression: Acute pelvic inflammatory disease, Hydrosalpinx Condition: Stable Prescriptions: New doxycycline hyclate 100 mg capsule 100 mg PO BID 14 Days Qty: 28 RF: 0 hydrocodone-acetaminophen 5-325 mg tablet 1 tab PO Q6H PRN (Reason: pain) Qty: 20 RF: 0 Zofran 4 mg tablet 4 mg PO Q6H PRN (Reason: nausea and vomiting) Qty: 20 RF: 0 Discharge Orders: Discharge ED (Routine); Ordered 08/12/20 Ordered By: Derrick Musa Discharge Diet: Clear Liquid Discharge Activity: Increase activity as tolerated Patient Instructions: Opioid Safety Activity Restrictions/Additional Instructions: Follow-up tomorrow. Case management will work with you to get gynecology follow-up and a PCP follow-up. You need immediate follow-up on the pelvic infection on a longer-term basis she will need follow-up on abnormal kidney imaging findings. These findings were present previously and may be chronic but do require some follow-up. Coding Level of Care Code ED Brushing Operator for Peter Fwd Exam Comprehensive
[2020-08-12 09:54] LABS: Alanine Aminotransferase 12 U/L (0-33); Alkaline Phosphatase 76 IU/L (35-105); Anion Gap 16.7 (5-19); Aspartate Amino Transferase 18 U/L (0-32); Blood Urea Nitrogen 18 mg/dL (6-20); Calcium 8.9 mg/dL (8.5-10.5); Carbon Dioxide 24 mmol/L (22-29); Chloride 100 mmol/L (98-107); Globulin 3.2 g/dL (1.3-4.6); Glomerular Filtration Rate 150.3 mL/min (90-130); Glucose 95 mg/dL (65-115); Osmolality Calculated 286 mOsm/kg (285-295); Potassium 3.7 mmol/L (3.5-5.1); Sodium 137 mmol/L (136-145); Total Bilirubin 0.3 mg/dL (0.15-1.2); Total Protein 8.2 g/dL (6.6-8.7)
[2020-08-12 10:11] LABS: HCG, Serum Qual Negative (Negative)
[2020-08-12 10:32] VITALS: RESP 18; O2SAT 98
[2020-08-12 10:35] LABS: Add Urine Microscopic? YES; Bacteria Urine 1+ /hpf; Bilirubin Urine 1+ (Negative); Blood Urine Neg (Negative); Glucose Urine UA Norm (Normal); Ketones Urine Negative (Negative); Leukocyte Esterase Urine Trace (Negative); Mucus Urine 2+ /hpf; Nitrate Urine Negative (Negative); Protein Urine Neg (Negative); Urine Appearance Hazy (CLEAR); Urine Color Yellow (Yellow); Urobilinogen Urine 1 mg/dL (Negative); WBC Urine 0-4 /hpf (0-5); pH Urine 5 (5-7)
[2020-08-12 10:37] LABS: Add Urine Culture? No
--- NOTE | 2020-08-12 11:37 | CT_ITS ---
WS: [id number] CT ABDOMEN PELVIS TECHNIQUE: Contrast-enhanced CT of the abdomen and pelvis with coronal and sagittal reformatted image s. CLINICAL INFORMATION: abd pain COMPARISON: Ultrasound from earlier today. CT June 30, 2019 DLP: 843.[address] scans at [facility] use at least one of these dose optimization techniques: automat ed exposure control; mA and/or kV adjustment per patient size (includes targeted exams where dose is matched to clinical indication); or iterative reconstruction. FINDINGS: Heterogeneous enlarged uterus with fluid in the endometrial canal. Prominent pelvic varicosities. Thi s is similar to the prior examination. Peripherally enhancing left ovarian or corpus luteum cyst izabela uring 1.6 x 1.1 CCM. Small tubular fluid collection adjacent to the right ovary also seen on the ultrasound. This measures approximately 2.6 x 1.2 cm suspicious for hydrosalpinx. Small amount of free fluid in the cul-de-sac . Hepatomegaly. Enlargement of the right hepatic lobe. Spleen size upper limits of normal. Lung bases a re well aerated. Normal GE junction. Normal pancreatic parenchymal enhancement. Normal caliber abdomi nal aorta. Normal gallbladder. Portal vein and splenic vein are patent. Adrenal glands are normal. St riated right nephrogram suspicious for pyelonephritis. Correlation for UTI. Normal left nephrogram. T iny fat-containing umbilical hernia. Chronic bilateral pars defects. No anterolisthesis. CT/CT abdomen pelvis w con* [id number] IMPRESSION: 1. Heterogeneous uterine enhancement with pelvic varicosities and fluid in the endometrial canal. 2. Peripheral enhancing left corpus luteum cyst measuring 1.1 x 1.6 CCM. 3. Small tubular fluid collection suspicious for hydrosalpinx adjacent to the right ovary as seen on the ultrasound measuring 1.2 x 2.6 cm. Small amount of f ree fluid in the cul-de-sac. 4. Striated right nephrogram suspicious for pyelonephritis. Recommend correlat ion UTI. This was also present on the CT November 14, 2019 5. Hepatomegaly. 6. Chronic bilateral pars defects. Notified Derrick Musa DO at 08/12/2020 1:14 PM.
[2020-08-12] MEDS: ketorolac 30 mg/mL INJ 60 MG IVP (12:04)
[2020-08-12 12:05] VITALS: RESP 18; O2SAT 98
[2020-08-12 12:07] VITALS: BP 109/51; PULSE 87; RESP 16; O2SAT 100
[2020-08-12] MEDS: iohexol 300 mg/mL 100 mL Btl IV (12:47)
[2020-08-12 13:00] VITALS: BP 111/53; PULSE 84; O2SAT 99
[2020-08-12] MEDS: cefTRIAXone 1,000 MG in lidocaine 1% 2.1 ML 2 MG IM (13:56)
--- NOTE | 2020-08-12 15:22 | DCPLANNER ---
assistant sales manager was asked to speak with patient about getting established with a primary care physician. assistant sales manager called [facility], spoke with Glenda, a follow up appointment was scheduled for Thursday, August 13, 2020 at 8:[address] Barajas. assistant sales manager called patient and gave patient the appointment information.
--- NOTE | 2020-08-13 09:28 | PC.NURSE ---
Written orders recevied by Dr Musa for prescription for Flagyl 500mg 1 tab PO BID for 10 days. Prescription called into [place] pharmacy per pt request.
--- NOTE | 2020-08-13 11:15 | DCPLANNER ---
Patient had appointment scheduled for 08.13.[address] Barajas at [facility] - patient did not attend appointment.
== END 2020-08-12 14:19 | disposition home or self-care (01) ==
PROVIDERS: Emergency Provider Family Medicine
DX: N73.0 Acute parametritis and pelvic cellulitis (principal); N70.11 Chronic salpingitis; F17.210 Nicotine dependence, cigarettes, uncomplicated
CPT/HCPCS: 74177; 76830; 76856; 80053; 81001; 84703; 85025; 87210; 87491; 87591; 96361; 96374; 96375; 96376; 99284; J0696; J1885; J2270; J2405; J2930; J7030; Q9967

== ENCOUNTER 2021-01-30 20:33 | Emergency (ER) | payer BC, MEDICAID, SELFPAY ==
[2021-01-30 20:48] VITALS: BP 114/73; PULSE 96; RESP 18; TEMP 36.8; O2SAT 98
[2021-01-30 21:04] VITALS: BP 92/79; PULSE 117; RESP 20; TEMP 36.7; O2SAT 97
--- NOTE | 2021-01-30 21:06 | USR_ITS ---
PROCEDURE INFORMATION: Exam: US Nonobstetric Pelvis; Complete Exam date and time: 01/30/2021 9:06 PM Age: 25 years old Clinical indication: Pelvic pain; Patient HX: PT became very upset during exam, unable to consent for further imaging transvaginally. ED physician informed TECHNIQUE: Imaging protocol: Transabdominal pelvic nonobstetric ultrasound. Complete exam. Real time ultrasound with image documentation. COMPARISON: US pelvic with transvaginal 08/12/2020 9:48 AM FINDINGS: Uterus: The uterus measures 9.2 x 6.3 x 5.5 cm. The myometrium is normal. The endometrium measures 3-4 mm which is normal. Right ovary/adnexa: The right ovary measures 2.5 x 1.5 x 1.7 cm and has normal size and echogenicity and is normally perfused as seen on color Doppler with spectral analysis. Left ovary/adnexa: The left ovary measures 2.6 x 1.9 x 1.3 cm and is unremarkable and normally perfused as seen on color Doppler with spectral analysis. Intraperitoneal space: No free fluid. Urinary bladder: Normal. Other findings: No cyst or mass. US/US pelvic complete* [id number] IMPRESSION: Unremarkable uterus and ovaries. Radiation Dose CTDIVOL = (mGy): DLP = (mGy-cm)
[2021-01-30 21:29] VITALS: RESP 24; O2SAT 99
[2021-01-30] MEDS: HYDROmorphone 1 mg/mL INJ 1 mL IVP (21:29)
[2021-01-30] MEDS: ondansetron 2 mg/ML SDV 2 mL 4 MG IVP (21:29)
[2021-01-30] MEDS: sodium chloride 0.9% 1,000 ML 999 ML IV (21:30)
[2021-01-30 21:41] LABS: Basophils # 0.1 10^3/uL (0.0-0.1); Basophils % 0.6 %; Eosinophils # 0.1 10^3/uL (0.0-0.8); Eosinophils % 0.8 %; Hematocrit 34.1 % (37.0-47.0); Hemoglobin 12.1 g/dL (11.5-15.3); Lymphocytes # 2.7 10^3/uL (0.8-4.8); Lymphocytes % 31.5 %; Mean Corpuscular HGB Conc 35.5 g/dL (30.0-36.0); Mean Corpuscular Hemoglobin 31.2 pg (28.0-34.0); Mean Corpuscular Volume 87.9 fl (81-99); Mean Platelet Volume 10.9 fL (7.4-10.4); Monocytes # 0.7 10^3/uL (0.2-0.9); Monocytes % 7.5 %; Neutrophils % 59.3 %; Nucleated Red Blood Cells % 0 %; Platelet Count 231 10^3/cmm (130-400); Red Blood Count 3.88 10^6/uL (4.1-5.3); Red Cell Distribution Width 11.8 % (12.1-15.1); White Blood Count 8.6 10^3/uL (4.0-10.0)
--- NOTE | 2021-01-30 21:55 | W.ED.ABDPA2 ---
HPI - Abdominal Pain General: Chief Complaint: Abdominal Pain Stated Complaint: 7 Weeks Preg\Sharp ABD Pains Time Seen by Provider: 01/30/21 20:52 Source: patient Mode of arrival: ambulatory Limitations: no limitations History of Present Illness: HPI narrative: 25-year-old female who states she is currently 7 weeks this is her fifth she had no other difficulties with her previous 4 pregnancies. States that starting today she is having severe suprapubic abdominal pain states pain is sharp in nature rates an 8 out of 10 denies any vaginal bleeding or discharge denies any fever denies any nausea vomiting denies any worsening improving factors. Associated Symptoms: Denies chills, dysuria and fever(s) Related Data: Date of Last Menstrual Period: 06/11/19 Review of Systems Const: Denies: fever(s), chills, body aches or change in appetite Eyes: Denies: blurry vision or eye discomfort ENMT: Denies: throat pain or dental pain Card: Denies: chest pain Resp: Denies: dyspnea GI: Reports: abdominal pain : Denies: dysuria Musc: Denies: neck pain or back pain Skin/Breast: Denies: rash Neuro: Denies: headache(s) Psych: Denies: depression Jett/Lymph: Denies: easy bruising All/Imm: Denies: urticaria PFSH ED PFSH: Medical History (Updated 01/30/21 @ 23:30 by Sandip Preston MD) Asthma Surgical History H/O knee surgery 2004-Performed in [place], [place] H/O oral surgery 2016- Performed in [place], [place] 2008- Performed in [place] Social History Smoking and tobacco status: current every day smoker cigarettes and e-cigarettes Female Reproductive History: Date of last menstrual period: 06/11/19 : 5 Physical Exam Const: COMMON NORMALS: no acute distress, patient oriented x3 and healthy appearing HENMT: COMMON NORMALS: normocephalic and atraumatic HEAD & SCALP: normocephalic and atraumatic Eye: COMMON NORMALS: Equal, round and reactive pupils present and EOMs intact bilaterally PUPIL: Yes Equal, round and reactive pupils present Neck/C-Spine: COMMON NORMALS: full ROM and supple Chest: COMMONS NORMALS: normal inspection of the chest and normal palpation of entire chest wall Resp: COMMON NORMALS: normal respiratory effort, No retractions, No use of accessory muscles and clear to auscultation bilaterally AUSCULTATION: clear to auscultation bilaterally Cardio: COMMON NORMALS: regular rate, regular rhythm and No murmurs present (Cardio) RATE: regular rate RHYTHM: regular rhythm GI: COMMON NORMALS: Normal to inspection, nondistended, normoactive bowel sounds present, Soft to palpation, non-tender and no masses PALPATION: Yes Soft to palpation OTHER: suprapubic tenderness Extremity: COMMON NORMALS: normal to inspection and full ROM Neuro: COMMON NORMALS: patient oriented x3, moves all extremities and no focal motor deficits Psych: COMMON NORMALS: mental status grossly normal, Normal thought process present and cooperative THOUGHT PROCESS: Normal thought process present Skin: COMMON NORMALS: no rashes or lesions noted and no wounds GENERAL SKIN EXAM: no rashes or lesions noted Course Vital Signs: Vital signs: Vital Signs Temperature 98.1 F 01/30/21 21:04 Pulse Rate 117 H 01/30/21 21:04 Respiratory Rate 24 H 01/30/21 21:29 Blood Pressure 92/79 01/30/21 21:04 Pulse Oximetry 99 01/30/21 21:29 MDM - Abdominal Pain MDM Narrative: Medical decision making narrative: pt presents here with abd pain and ct showed ovarian cyst. pt got up from her room and ripped out her iv and left when her boyfriend arrive. I was unable to speak to her before she left. she is not Lab Data: Labs: Lab Results 01/30/21 01/30/21 01/30/21 21:29 21:29 21:29 WBC 8.6 10^3/uL 10^3/ uL (4.0-10.0) RBC 3.88 10^6/uL L 10 ^6/uL (4.1-5.3) Hgb 12.1 g/dL g/dL (11.5-15.3) Hct 34.1 % L % (37.0-47.0) MCV 87.9 fl fl (81-99) MCH 31.2 pg pg (28.0-34.0) MCHC 35.5 g/dL g/dL (30.0-36.0) RDW 11.8 % L % (12.1-15.1) Plt Count 231 10^3/cmm 10^3 /cmm (130-400) MPV 10.9 fL H fL (7.4-10.4) Neut % (Auto) 59.3 % % Lymph % (Auto) 31.5 % % [place] % (Auto) 7.5 % % Eos % (Auto) 0.8 % % Baso % (Auto) 0.6 % % Neut # (Auto) 5.10 10^3/uL 10^3 /uL (1.8-7.7) Lymph # (Auto) 2.7 10^3/uL 10^3/ uL (0.8-4.8) [place] # (Auto) 0.7 10^3/uL 10^3/ uL (0.2-0.9) Eos # (Auto) 0.1 10^3/uL 10^3/ uL (0.0-0.8) Baso # (Auto) 0.1 10^3/uL 10^3/ uL (0.0-0.1) Nucleated RBC % (a uto) 0 % % Nucleated RBCs # 0.0 /100WBC /100W BC Sodium 136 mmol/L mmol/L (136-145) Potassium 3.5 mmol/L mmol/L (3.5-5.1) Chloride 100 mmol/L mmol/L (98-107) Carbon Dioxide 25 mmol/L mmol/L (22-29) Anion Gap 14.5 (5-19) BUN 15 mg/dL mg/dL (6-20) Creatinine 0.5 mg/dL mg/dL (0.5-0.9) GFR Calculation 150.3 mL/min H mL /min (90-130) Glucose 91 mg/dL mg/dL (65-115) Calculated Osmolal ity 282 mOsm/kg L mOs m/kg (285-295) Lactate 1.0 mmol/L mmol/L (0.5-2.2) Calcium 9.2 mg/dL mg/dL (8.5-10.5) Total Bilirubin 0.2 mg/dL mg/dL (0.15-1.2) AST 20 U/L U/L (0-32) ALT 12 U/L U/L (0-33) Alkaline Phosphata se 66 IU/L IU/L (35-105) Total Protein 6.7 g/dL g/dL (6.6-8.7) Albumin 4.5 g/dL g/dL (3.5-5.2) Globulin 2.2 g/dL g/dL (1.3-4.6) Lipase 17 U/L U/L (13-60) Ser , Joey i-Qnt 0.50 mIU/mL mIU/m L Discharge Plan Discharge Clinical Impression: Ovarian cyst Abdominal pain Qualifiers: Abdominal location: left lower quadrant Qualified Code(s): R10.32 - Left lower quadrant pain Prescriptions: No Action hydrocodone-acetaminophen 5-325 mg tablet 1 tab PO Q6H PRN (Reason: pain) Qty: 20 RF: 0 Zofran 4 mg tablet 4 mg PO Q6H PRN (Reason: nausea and vomiting) Qty: 20 RF: 0 Patient Instructions: Abdominal Pain (ED) Coding Level of Care Code ED Product Tester for Chg Fwd Exam Comprehensive
[2021-01-30 22:10] LABS: Alanine Aminotransferase 12 U/L (0-33); Albumin Level 4.5 g/dL (3.5-5.2); Alkaline Phosphatase 66 IU/L (35-105); Anion Gap 14.5 (5-19); Aspartate Amino Transferase 20 U/L (0-32); Blood Urea Nitrogen 15 mg/dL (6-20); Calcium 9.2 mg/dL (8.5-10.5); Carbon Dioxide 25 mmol/L (22-29); Chloride 100 mmol/L (98-107); Globulin 2.2 g/dL (1.3-4.6); Glomerular Filtration Rate 150.3 mL/min (90-130); Glucose 91 mg/dL (65-115); Lipase 17 U/L (13-60); Osmolality Calculated 282 mOsm/kg (285-295); Potassium 3.5 mmol/L (3.5-5.1); Sodium 136 mmol/L (136-145); Total Bilirubin 0.2 mg/dL (0.15-1.2); Total Protein 6.7 g/dL (6.6-8.7)
--- NOTE | 2021-01-30 22:21 | CTR_ITS ---
PROCEDURE INFORMATION: Exam: CT Abdomen And Pelvis With Contrast Exam date and time: 01/30/2021 10:21 PM Age: 25 years old Clinical indication: Abdominal pain; Localized; Patient HX: C/O lower abd/pelvic pain TECHNIQUE: Imaging protocol: Computed tomography of the abdomen and pelvis with contrast. Radiation optimization: All CT scans at this facility use at least one of these dose optimization techniques: automated exposure control; mA and/or kV adjustment per patient size (includes targeted exams where dose is matched to clinical indication); or iterative reconstruction. Contrast material: OMNI 300; Contrast volume: 95 ml; Contrast route: INTRAVENOUS (IV); COMPARISON: CT abdomen pelvis w con* [id number] 08/12/2020 12:41 PM RADIATION DOSE METRICS: Total DLP (mGy-cm): 950.72 FINDINGS: Liver: Normal. No mass. Gallbladder and bile ducts: Normal. No calcified stones. No ductal dilation. Pancreas: Normal. No ductal dilation. Spleen: Normal. No splenomegaly. Adrenal glands: Normal. No mass. Kidneys and ureters: Normal. No hydronephrosis. Stomach and bowel: Unremarkable. No obstruction. No mucosal thickening. Appendix: No evidence of appendicitis. Intraperitoneal space: Small pelvic free fluid. Vasculature: Unremarkable. No abdominal aortic aneurysm. Lymph nodes: Unremarkable. No enlarged lymph nodes. Urinary bladder: Unremarkable as visualized. Reproductive: There is a mature or recently ruptured left ovarian follicle measuring 1.4 cm. Bones/joints: At L5-S1 there is minimal 2 mm of subluxation due to bilateral chronic pars defects. Soft tissues: Unremarkable. CT/CT abdomen pelvis w con* [id number] IMPRESSION: 1. No significant abdominopelvic findings. 2. Mature or recently ruptured left ovarian follicle with trace free fluid. 3. L5-S1 bilateral chronic pars defects Radiation Dose CTDIVOL = (mGy): DLP = 950.72 (mGy-cm)
[2021-01-30] MEDS: iohexol 300 mg/mL 100 mL Btl IV (22:41)
[2021-01-30] MEDS: metoclopramide 5 mg/mL SDV 2 mL IVP (22:54)
== END 2021-01-30 23:14 ==
PROVIDERS: Emergency Provider Emergency Medicine
DX: R10.32 Left lower quadrant pain (principal); N83.209 Unspecified ovarian cyst, unspecified side; F17.210 Nicotine dependence, cigarettes, uncomplicated; F17.290 Nicotine dependence, other tobacco product, uncomplicated
CPT/HCPCS: 74177; 76856; 80053; 83605; 83690; 84702; 85025; 93976; 96361; 96374; 96375; 99284; J1170; J2405; J2765; J7030; Q9967

== ENCOUNTER → 2021-04-09 17:19 | Outpatient (BNVA) | payer BC, MEDICAID, SELFPAY | PROVIDERS: Visit Provider Nurse Practitioner | DX: Z20.2 Contact with and (suspected) exposure to infections with a predominantly sexual mode of transmission (principal) | CPT/HCPCS: 87491; 87591 ==

== ENCOUNTER 2022-03-24 00:27 | Emergency (ER) | payer MEDICAID, SELFPAY ==
[2022-03-24 00:40] VITALS: BP 146/93; PULSE 107; RESP 16; TEMP 36.8; O2SAT 98
[2022-03-24 00:44] VITALS: BP 116/76; PULSE 90; RESP 22; O2SAT 97
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
[2022-03-24] MEDS: acetaminophen 500 mg Tablet PO (01:56)
[2022-03-24] MEDS: ibuprofen 200 mg Tablet 400 MG PO (01:57)
[2022-03-24 01:58] VITALS: BP 124/75; PULSE 92; RESP 20; O2SAT 98
== END 2022-03-24 02:02 | disposition home or self-care (01) ==
PROVIDERS: Emergency Provider Nurse Practitioner Family
DX: S09.90XA Unspecified injury of head, initial encounter (principal); F17.290 Nicotine dependence, other tobacco product, uncomplicated; Y00.XXXA Assault by blunt object, initial encounter
CPT/HCPCS: 70450; 72125; 99284

== ENCOUNTER 2022-08-20 10:19 | Emergency (ER) | payer BC, MEDICAID, SELFPAY ==
[2022-08-20 10:20] VITALS: BP 132/99; PULSE 102; TEMP 36.8; O2SAT 98; BMI 24.0
--- NOTE | 2022-08-20 10:32 | USR_ITS ---
PROCEDURE INFORMATION: Exam: US Nonobstetric Pelvis; Complete Exam date and time: 08/20/2022 11:07 AM Age: 27 years old Clinical indication: Other: Vag bleed; Additional info: Vaginal bleeding-preg TECHNIQUE: Imaging protocol: Transabdominal pelvic nonobstetric ultrasound. Complete exam. Real time ultrasound with image documentation. COMPARISON: US pelvic complete* [id number] 01/30/2021 10:05 PM FINDINGS: Uterus is anteverted and unremarkable in overall size and contour measuring 9.2 x 4.8 x 4.4 cm. No uterine masses are textural changes within the myometrium. Endometrial lining is not abnormally thickened. There is no intrauterine gestational sac detected at this time. Right ovary is unremarkable in size and contour. No adnexal mass. Normal Doppler flow. Left ovary is unremarkable in size and contour. No adnexal mass. Normal Doppler flow. There is no free fluid seen in the cul-de-sac. US/US pelvic limited [id number] IMPRESSION: No evidence of intrauterine at this time. Consider completed miscarriage, early IUP (less than 5 weeks) or occult ectopic . Correlation with serial hCGs and follow-up recommended.
--- NOTE | 2022-08-20 10:34 | ED_ITS ---
HPI - General: Chief complaint: Abdominal Pain Stated complaint: ABD PAIN Time Seen by Provider: 08/20/22 10:20 Source: patient Mode of arrival: EMS Limitations: no limitations History of Present Illness: This patient was transported to the emergency department by EMS from her home. She states that she got up this morning urinate and had cramping and back pain and passed blood and tissue in the toilet. She thinks she is and she states her last menstrual period is approximately 2 to 3 months ago. She has not had any OB care this states that she has been very busy with family emergencies. This is her fifth she has had 4 vaginal deliveries only 1 complicated by preeclampsia. She states the symptoms of feel crampy and they come and go and become pretty intense when she gets them. She denies any other current physical symptoms at this time. MD Complaint: vaginal bleeding Quality: Cramping Vaginal bleeding: clots Patient : Yes OB History - Previous Pregnancies: preeclampsia care: none Associated symptoms: Reports abdominal pain and nausea; Deny headache(s), syncope, vaginal bleeding or vomiting Related Data: : 5 Para: 4 Review of Systems Const: Denies: fever(s) or chills Eyes: Denies: change in vision ENMT: Denies: throat pain, odynophagia or nasal discharge Card: Denies: chest pain, syncope or pre-syncope Resp: Denies: dyspnea GI: Reports: abdominal pain and nausea; Denies: vomiting, hematemesis or diarrhea : Reports: vaginal bleeding and pelvic pain Musc: Reports: back pain; Denies: neck pain, extremity pain or extremity swelling Skin/Breast: Denies: rash Neuro: Denies: headache(s), numbness in extremities or weakness in extremities Psych: Reports: anxiety COUNT INCLUDES THE [facility] ED PFSH: Medical History (Updated 08/20/22 @ 14:31 by Abraham Gracia DO) Asthma Surgical History H/O knee surgery 2004-Performed in [place], [place] H/O oral surgery 2016- Performed in [place], [place] 2009- Performed in [place] Social History Smoking and tobacco status: current every day smoker cigarettes and e- cigarettes Female Reproductive History: : 5 Physical Exam Narrative: EXAM NARRATIVE: Appears to be uncomfortable has intermittent episodes where she moans in pain a nd then becomes or interactive. Const: COMMON NORMALS: average body habitus, patient oriented x3, healthy appearing and alert GENERAL APPEARANCE: anxious ORIENTATION/CONSCIOUSNESS: Yes awake HENMT: COMMON NORMALS: normocephalic, Normal nasal mucous membranes and turbinates present, moist oral mucous membranes and oropharynx normal HEAD & SCALP: normocephalic NOSE: Normal nasal mucous membranes and turbinates present Eye: COMMON NORMALS: Equal, round and reactive pupils present, EOMs intact bilaterally and conjunctivae normal CONJUNCTIVA: Yes conjunctivae normal PUPIL: Yes Equal, round and reactive pupils present Neck/C-Spine: COMMON NORMALS: full ROM, no lymphadenopathy, supple and no JVD Chest: COMMONS NORMALS: normal inspection of the chest Resp: COMMON NORMALS: normal respiratory effort, No use of accessory muscles and clear to auscultation bilaterally AUSCULTATION: clear to auscultation bilaterally Cardio: COMMON NORMALS: no JVD, regular rate, regular rhythm, No murmurs present (Cardio) and Peripheral pulses 2+ throughout RATE: regular rate RHYTHM: regular rhythm PERIPHERAL PULSES: Peripheral pulses 2+ throughout GI: COMMON NORMALS: Normal to inspection, nondistended, normoactive bowel sounds present, Soft to palpation and non-tender PALPATION: Yes Soft to palpation : COMMON NORMALS: Yes no CVA tenderness and Yes normal external appearance BLADDER/KIDNEY EXAM: Yes no CVA tenderness SPECULUM EXAM - VAGINA: No vaginal bleeding and No tissue present in vagina SPECULUM EXAM - CERVIX: Yes Cervical os closed OB/EXTERNAL & SPECULUM: no tissue noted in vagina and vaginal bleeding OTHER: Pelvic examination revealed normal external event genitalia. Speculum examination was undertaken. Revealed a closed os there was minimal bloody mucus in the posterior fornix. No active bleeding noted from the os. Back/Pelvis: COMMON NORMALS: no CVA tenderness, thoracic and lumbar spine normal to inspection, no thoracic nor lumbar tenderness, thoraco-lumbar ROM normal and straight leg raise negative bilaterally Extremity: COMMON NORMALS: normal to inspection, full ROM, capillary refill normal, no calf tenderness and no pedal edema Neuro: COMMON NORMALS: patient oriented x3, moves all extremities, no focal motor deficits and no sensory deficits noted SENSORIUM/ORIENTATION: Yes alert Psych: COMMON NORMALS: mental status grossly normal Skin: COMMON NORMALS: no rashes or lesions noted and turgor normal GENERAL SKIN EXAM: no rashes or lesions noted and turgor normal Course Reevaluation(s): Reevaluation #1: POCUS used to attempt to visualize the pelvis. She has an empty bladder and therefore no sonographic window to view the pelvis at this time. Time: 10:38 Vital Signs: Vital signs: Vital Signs Temperature 98.2 F 08/20/22 10:20 Pulse Rate 90 08/20/22 14:00 Blood Pressure 120/73 08/20/22 14:00 Pulse Oximetry 100 08/20/22 14:00 Oxygen Delivery Me thod Room Air 08/20/22 14:00 MDM - OB/Uterine Contractions Medical Decision Making This patient initially came to the emergency department under the assumption that she was approximately 2 to 3 months was having some bleeding as cramping this morning and thought she was having a possible miscarriage. He had not had a regular period for approximately 2 and half to 3 months. No other associated symptoms. She was uncomfortable upon her arrival but not unstable with regards to her vital signs. Clinical examination revealed pelvic examination with a closed os with no active bleeding. The concern was possible miscarriage versus ectopic versus other pelvic pathology. Work-up ensued to include pelvic ultrasound, left ancillary labs etc. Laboratories were obtained which revealed normal hemog lobin hematocrit and white blood count. Other ancillary studies were also normal. Ultrasound revealed an empty uterus without any evidence of intrauterine or extrauterine masses. Her hCG was essentially 0. This leads I to surmise that she has not been anytime in the recent past or at least for 3 to 4 weeks. Her urinalysis was unremarkable for any signs of infection. Repeat evaluation reveals her to be very comfortable interacting with acquaintances in the room. Normal vital signs and no other evidence of ongoing pathology or emergent medical condition. Current presentation suggest at this time possible dysmenorrhea or other benign etiologies of pelvic pain. She does relate that she is previously on Depo-Provera but cannot member the last time she had that injection which makes 1 wonder if this was a factor in her current presentation given the fact that she has not had normal menstrual cycles for some time and perhaps this was an excessive drawl bleed. Certainly nothing on her clinical picture today suggest a surgical abdomen, ectopic , PUD, tubo-ovarian abscess, UTI etc. She was stable and very comfortable and interacting normally with others in the room. We discussed return precautions. She voiced understanding of our discussion and was appreciative of care. Lab Data I reviewed the patient's lab results. 08/20/22 10:36 08/20/22 10:36 Radiology Impressions Pelvis Ultrasound 08/20/22 10:32 IMPRESSION: No evidence of intrauterine at this time. Consider completed miscarriage, early IUP (less than 5 weeks) or occult ectopic . Correlation with serial hCGs and follow-up recommended. Laboratory Results WBC 7.1 10^3/uL (4.0-10.0) 08/20/22 10:36 RBC 4.37 10^6/uL (4.1-5.3) 08/20/22 10:36 Hgb 12.7 g/dL (11.5-15.3) 08/20/22 10:36 Hct 39.3 % (37.0-47.0) 08/20/22 10:36 MCV 89.9 fl (81-99) 08/20/22 10:36 MCH 29.1 pg (28.0-34.0) 08/20/22 10:36 MCHC 32.3 g/dL (30.0-36.0) 08/20/22 10:36 RDW 13.2 % (12.1-15.1) 08/20/22 10:36 Plt Count 228 10^3/cmm (130-400) 08/20/22 10:36 MPV 10.7 fL (7.4-10.4) H 08/20/22 10:36 Neut % (Auto) 60.6 % 08/20/22 10:36 Lymph % (Auto) 30.3 % 08/20/22 10:36 [place] % (Auto) 6.2 % 08/20/22 10:36 Eos % (Auto) 1.6 % 08/20/22 10:36 Baso % (Auto) 0.6 % 08/20/22 10:36 Neut # (Auto) 4.28 10^3/uL (1.8-7.7) 08/20/22 10:36 Lymph # (Auto) 2.1 10^3/uL (0.8-4.8) 08/20/22 10:36 [place] # (Auto) 0.4 10^3/uL (0.2-0.9) 08/20/22 10:36 Eos # (Auto) 0.1 10^3/uL (0.0-0.8) 08/20/22 10:36 Baso # (Auto) 0.0 10^3/uL (0.0-0.1) 08/20/22 10:36 Nucleated RBC % (auto) 0 % 08/20/22 10:36 Nucleated RBCs # 0.0 /100WBC 08/20/22 10:36 Sodium 137 mmol/L (136-145) 08/20/22 10:36 Potassium 3.7 mmol/L (3.5-5.1) 08/20/22 10:36 Chloride 104 mmol/L (98-107) 08/20/22 10:36 Carbon Dioxide 25 mmol/L (22-29) 08/20/22 10:36 Anion Gap 11.7 (5-19) 08/20/22 10:36 BUN 16 mg/dL (6-20) 08/20/22 10:36 Creatinine 0.5 mg/dL (0.5-0.9) 08/20/22 10:36 GFR Calculation 148.0 mL/min (90-130) H 08/20/22 10:36 Glucose 79 mg/dL (65-115) 08/20/22 10:36 Calculated Osmolality 284 mOsm/kg (285-295) L 08/20/22 10:36 Calcium 8.7 mg/dL (8.5-10.5) 08/20/22 10:36 Total Bilirubin 0.2 mg/dL (0.15-1.2) 08/20/22 10:36 AST 17 U/L (0-32) 08/20/22 10:36 ALT 12 U/L (0-33) 08/20/22 10:36 Alkaline Phosphatase 78 U/L (35-105) 08/20/22 10:36 Total Protein 6.8 g/dL (6.6-8.7) 08/20/22 10:36 Albumin 4.1 g/dL (3.5-5.2) 08/20/22 10:36 Globulin 2.7 g/dL (1.3-4.6) 08/20/22 10:36 Ser , Semi-Qnt 1.00 mIU/mL 08/20/22 10:36 Urine Color Dark yellow (Yellow) 08/20/22 13:52 Urine Appearance Clear (CLEAR) 08/20/22 13:52 Urine pH 5 (5-7) 08/20/22 13:52 Ur Specific [place] 1.020 (1.005-1.030) 08/20/22 13:52 Urine Protein Neg (Negative) 08/20/22 13:52 Urine Glucose (UA) Norm (Normal) 08/20/22 13:52 Urine Ketones Negative (Negative) 08/20/22 13:52 Urine Blood 3+ (Negative) H 08/20/22 13:52 Urine Nitrate Negative (Negative) 08/20/22 13:52 Urine Bilirubin Neg (Negative) 08/20/22 13:52 Urine Urobilinogen Norm mg/dL (Negative) 08/20/22 13:52 Ur Leukocyte Esterase Negative (Negative) 08/20/22 13:52 Urine RBC 5-10 /hpf (0-2) H 08/20/22 13:52 Urine WBC Rare /hpf (0-5) 08/20/22 13:52 Ur Squamous Epith Cells 5-10 /hpf (0-5) H 08/20/22 13:52 Amorphous Sediment Not Reportable 08/20/22 13:52 Urine Bacteria Trace /hpf (NONE) 08/20/22 13:52 Urine Mucus Trace /hpf 08/20/22 13:52 Discharge Plan Discharge Patient Disposition: Home Clinical Impression: Abnormal vaginal bleeding, Pelvic pain Condition: Stable Prescriptions: No Action Ventolin HFA 90 mcg/actuation Hfa Aerosol Inhaler 2 puff INHALATION QID PRN (Reason: Shortness Of Breath) Multivitamins 28 mg iron- 800 mcg Tablet 1 tab PO DAILY lorazepam [Ativan] 0.5 mg Tablet 0.5 mg PO TID PRN (Reason: Anxiety) Discharge Orders: Discharge ED (Routine); Ordered 08/20/22 Ordered By: Abraham Gracia Discharge Diet: Usual diet Discharge Activity: Increase activity as tolerated Patient Instructions: Opioid Safety, Pain Management Activity Restrictions/Additional Instructions: As we discussed we did not find any serious conditions during your emergency department evaluation to include no evidence of recent miscarriage, in the abnormal location, pelvic mass or ovarian cyst etc. As we also discussed you should call your chemistry manager for further follow-up and evaluation as indicated. You are welcome to return to this or the nearest emergency department anytime for any recurrent symptoms or other concerns. Coding Level of Care Code ED Electrodynamicist for Peter Loja
[2022-08-20] MEDS: sodium chloride 0.9% 500 ML IV (10:37)
[2022-08-20 10:53] LABS: Basophils % 0.6 %; Eosinophils # 0.1 10^3/uL (0.0-0.8); Eosinophils % 1.6 %; Hematocrit 39.3 % (37.0-47.0); Hemoglobin 12.7 g/dL (11.5-15.3); Lymphocytes # 2.1 10^3/uL (0.8-4.8); Lymphocytes % 30.3 %; Mean Corpuscular HGB Conc 32.3 g/dL (30.0-36.0); Mean Corpuscular Hemoglobin 29.1 pg (28.0-34.0); Mean Corpuscular Volume 89.9 fl (81-99); Mean Platelet Volume 10.7 fL (7.4-10.4); Monocytes # 0.4 10^3/uL (0.2-0.9); Monocytes % 6.2 %; Neutrophils # 4.28 10^3/uL (1.8-7.7); Neutrophils % 60.6 %; Nucleated Red Blood Cells % 0 %; Platelet Count 228 10^3/cmm (130-400); Red Blood Count 4.37 10^6/uL (4.1-5.3); Red Cell Distribution Width 13.2 % (12.1-15.1); White Blood Count 7.1 10^3/uL (4.0-10.0)
[2022-08-20] MEDS: morphine 4 mg/mL SDV 1 mL IVP (10:56)
[2022-08-20 10:57] VITALS: BP 132/99; PULSE 85; O2SAT 100
[2022-08-20 11:15] LABS: Alanine Aminotransferase 12 U/L (0-33); Albumin Level 4.1 g/dL (3.5-5.2); Alkaline Phosphatase 78 U/L (35-105); Anion Gap 11.7 (5-19); Aspartate Amino Transferase 17 U/L (0-32); Blood Urea Nitrogen 16 mg/dL (6-20); Calcium 8.7 mg/dL (8.5-10.5); Carbon Dioxide 25 mmol/L (22-29); Chloride 104 mmol/L (98-107); Globulin 2.7 g/dL (1.3-4.6); Glucose 79 mg/dL (65-115); Osmolality Calculated 284 mOsm/kg (285-295); Potassium 3.7 mmol/L (3.5-5.1); Sodium 137 mmol/L (136-145); Total Bilirubin 0.2 mg/dL (0.15-1.2); Total Protein 6.8 g/dL (6.6-8.7)
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
[2022-08-20 11:56] VITALS: PULSE 90; O2SAT 98
[2022-08-20 13:00] VITALS: BP 115/67; PULSE 79; O2SAT 99
[2022-08-20 14:00] VITALS: BP 120/73; PULSE 90; O2SAT 100
[2022-08-20 14:21] LABS: Add Urine Microscopic? YES; Bilirubin Urine Neg (Negative); Blood Urine 3+ (Negative); Glucose Urine UA Norm (Normal); Ketones Urine Negative (Negative); Leukocyte Esterase Urine Negative (Negative); Nitrate Urine Negative (Negative); Protein Urine Neg (Negative); Urine Appearance Clear (CLEAR); Urine Color Dark Yellow (Yellow); Urobilinogen Urine Norm (Negative); WBC Urine RARE /hpf (0-5); pH Urine 5 (5-7)
[2022-08-20 14:22] LABS: Add Urine Culture? No; Bacteria Urine TRACE /hpf; Mucus Urine TRACE /hpf
--- NOTE | 2022-08-23 13:45 | DCPLANNER ---
manager application called patient due to no primary care physician - no answer at this time.
== END 2022-08-20 14:44 | disposition home or self-care (01) ==
PROVIDERS: Emergency Provider Emergency Medicine
DX: N93.9 Abnormal uterine and vaginal bleeding, unspecified (principal); R10.2 Pelvic and perineal pain
CPT/HCPCS: 76857; 80053; 81001; 84702; 85025; 96361; 96374; 99284; J2270; J7040

== ENCOUNTER 2022-09-13 16:23 | Emergency (ER) | payer BC, MEDICAID, SELFPAY ==
[2022-09-13 16:36] VITALS: BP 136/81; PULSE 108; RESP 18; TEMP 37.2; O2SAT 96; BMI 27.4
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
[2022-09-13 16:57] LABS: Basophils % 0.6 %; Eosinophils % 0.6 %; Hematocrit 36.6 % (37.0-47.0); Hemoglobin 12.2 g/dL (11.5-15.3); Lymphocytes # 1.3 10^3/uL (0.8-4.8); Lymphocytes % 19.1 %; Mean Corpuscular HGB Conc 33.3 g/dL (30.0-36.0); Mean Corpuscular Hemoglobin 29.8 pg (28.0-34.0); Mean Corpuscular Volume 89.3 fl (81-99); Monocytes # 0.3 10^3/uL (0.2-0.9); Monocytes % 3.9 %; Neutrophils # 5.07 10^3/uL (1.8-7.7); Neutrophils % 75.5 %; Nucleated Red Blood Cells % 0 %; Platelet Count 190 10^3/cmm (130-400); Red Cell Distribution Width 13.2 % (12.1-15.1); White Blood Count 6.7 10^3/uL (4.0-10.0)
[2022-09-13] MEDS: iohexol 350 mg/mL 500 mL Btl (per mL) IV (17:21)
[2022-09-13 17:23] LABS: Anion Gap 13.4 (5-19); Blood Urea Nitrogen 9 mg/dL (6-20); Calcium 8.8 mg/dL (8.5-10.5); Carbon Dioxide 26 mmol/L (22-29); Chloride 108 mmol/L (98-107); Glucose 90 mg/dL (65-115); Osmolality Calculated 296 mOsm/kg (285-295); Potassium 3.4 mmol/L (3.5-5.1); Sodium 144 mmol/L (136-145)
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
[2022-09-13 18:11] VITALS: BP 126/69; PULSE 81; O2SAT 98
== END 2022-09-13 18:12 | disposition home or self-care (01) ==
PROVIDERS: Emergency Provider Emergency Medicine
DX: Z04.1 Encounter for examination and observation following transport accident (principal); M25.562 Pain in left knee; F17.290 Nicotine dependence, other tobacco product, uncomplicated; V03.00XA Pedestrian on foot injured in collision with car, pick-up truck or van in nontraffic accident, initial encounter
CPT/HCPCS: 70450; 70486; 71260; 72125; 73552; 73562; 73590; 74177; 80048; 85025; 99285; Q9967

== ENCOUNTER 2022-10-02 20:57 | Emergency (ER) | payer BC, MEDICAID, SELFPAY ==
[2022-10-02 21:00] VITALS: BP 127/84; PULSE 122; RESP 22; TEMP 36.9; O2SAT 97; BMI 25.0
--- NOTE | 2022-10-02 21:08 | ECG_ITS ---
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 Measurements Intervals [place] Rate: 114 P: 78 AL: 176 QRS: 75 QRSD: 81 T: 62 QT: 310 QTc: 429 Interpretive Statements SINUS TACHYCARDIA POSSIBLE LEFT ATRIAL ENLARGEMENT [-0.1mV P-WAVE IN V1/V2] ABNORMAL RHYTHM ECG Compared to ECG 11/22/2017 17:11:46 Sinus rhythm no longer present Electronically Signed On 10-03-2022 17:36:32 CDT by Nabil Willard M.D. [email or web address]
[2022-10-02 21:09] VITALS: BP 147/84; PULSE 117; RESP 18; O2SAT 96
[2022-10-02] MEDS: LORazepam 2 mg/mL INJ 1 mL IVP (21:17)
[2022-10-02] MEDS: ibuprofen 600 mg Tablet PO (21:47)
[2022-10-02] MEDS: azithromycin 250 mg Tablet 1000 MG PO (21:47)
[2022-10-02] MEDS: cefTRIAXone 250 MG in water for injection-sterile 0.9 ML IM (21:48)
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
--- NOTE | 2022-10-04 08:54 | DCPLANNER ---
general manager [employer] called patient due to no primary care physician - no answer at this time.
== END 2022-10-02 22:19 | disposition home or self-care (01) ==
PROVIDERS: Emergency Provider Emergency Medicine
DX: F41.9 Anxiety disorder, unspecified (principal); J45.909 Unspecified asthma, uncomplicated; F17.210 Nicotine dependence, cigarettes, uncomplicated; Z79.899 Other long term (current) drug therapy
CPT/HCPCS: 87491; 87591; 93005; 96372; 96374; 99284; J0696; J2060; Q0144

== ENCOUNTER 2022-11-01 18:26 | Emergency (ER) | payer MEDICAID, SELFPAY ==
[2022-11-01 18:27] VITALS: BMI 21.6
[2022-11-01 18:33] VITALS: BP 122/72; PULSE 91; RESP 16; TEMP 37.2; O2SAT 98
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
[2022-11-01] MEDS: ondansetron 2 mg/ML SDV 2 mL 4 MG IVP (18:54)
[2022-11-01] MEDS: HYDROmorphone 1 mg/mL INJ 1 mL IVP (18:54)
--- NOTE | 2022-11-01 19:02 | PC.NURSE ---
Verbal order given per Dr Preston for 2mg Ativan IVP
[2022-11-01 19:03] LABS: Basophils % 0.3 %; Eosinophils # 0.1 10^3/uL (0.0-0.8); Eosinophils % 0.4 %; Hematocrit 36.4 % (36-47); Lymphocytes # 1.9 10^3/uL (0.8-4.8); Lymphocytes % 12.8 %; Mean Corpuscular HGB Conc 33.2 g/dL (30-55); Mean Corpuscular Hemoglobin 29.4 pg (27-33); Mean Corpuscular Volume 88.6 fl (85-98); Mean Platelet Volume 10.5 fL (7.4-10.4); Monocytes # 0.5 10^3/uL (0.2-0.9); Monocytes % 3.2 %; Neutrophils # 12.11 10^3/uL (1.8-7.7); Neutrophils % 82.4 %; Nucleated Red Blood Cells % 0 %; Platelet Count 288 10^3/cmm (157-399); Red Blood Count 4.11 10^6/uL (3.85-5.65); White Blood Count 14.69 10^3/uL (3.29-11.43)
[2022-11-01] MEDS: LORazepam 2 mg/mL INJ 1 mL IVP (19:05)
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
[2022-11-01 19:21] LABS: HCG, Serum Qual Negative (Negative)
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
[2022-11-01 19:25] LABS: Anion Gap 13.8 (5-19); Blood Urea Nitrogen 12 mg/dL (6-20); Calcium 9.1 mg/dL (8.5-10.5); Carbon Dioxide 25 mmol/L (22-29); Chloride 103 mmol/L (98-107); Creatinine Clr Calc Pharmacy 154.1784; Glucose 109 mg/dL (65-115); Osmolality Calculated 288 mOsm/kg (285-295); Sodium 139 mmol/L (136-145)
[2022-11-01 19:26] LABS: Lactic Sepsis W/Reflex 1.3 mmol/L (0.5-2.2)
[2022-11-01 19:27] LABS: Alcohol Level < 10 mg/dL (0-10)
[2022-11-01 19:28] LABS: Potassium 2.8 mmol/L (3.5-5.1)
[2022-11-01] MEDS: iohexol 350 mg/mL 500 mL Btl (per mL) IV (19:28)
[2022-11-01] MEDS: HYDROmorphone 1 mg/mL INJ 1 mL 2 MG IVP (19:37)
[2022-11-01 19:45] VITALS: BP 140/66; PULSE 90; RESP 16; O2SAT 100
[2022-11-01 20:14] LABS: Amphetamines Screen Urine Positive (Negative); Barbiturates Screen Urine Negative (Negative); Benzodiazepines Screen Urine Negative (Negative); Cocaine Screen Urine Negative (Negative); Opiate Screen Urine Positive (Negative); PCP Screen Urine Negative (Negative); THC Screen Urine Positive (Negative)
[2022-11-01 20:21] VITALS: BP 111/58; PULSE 82; RESP 12; O2SAT 100
--- NOTE | 2022-11-01 21:36 | PC.NURSE ---
Patient report was called to JOON Valentine in [facility] by JOON Rascon. Pt was transferred ER to ER via flight crew. Pt, all paperwork and belongings transferred with pt.
--- NOTE | 2022-11-01 21:40 | PC.NURSE ---
Order put in per Dr Preston for 1mg morphine IVP
[2022-11-01 21:44] VITALS: RESP 18
[2022-11-01] MEDS: morphine 4 mg/mL SDV 1 mL 1 MG IVP (21:44)
[2022-11-01] MEDS: LORazepam 2 mg/mL INJ 1 mL 1 MG IVP (21:52)
--- NOTE | 2022-11-09 16:05 | DCPLANNER ---
lodging manager called patient due to no primary care physician - no answer at this time.
--- NOTE | 2022-11-15 13:23 | DCPLANNER ---
ethanol operations manager called patient due to no primary care physician - phone number has been placed out of service
== END 2022-11-01 21:54 | disposition short-term general hospital (02) ==
PROVIDERS: Emergency Provider Emergency Medicine
DX: S01.81XA Laceration without foreign body of other part of head, initial encounter (principal); S32.391A Other fracture of right ilium, initial encounter for closed fracture; S27.321A Contusion of lung, unilateral, initial encounter; F17.290 Nicotine dependence, other tobacco product, uncomplicated; V89.2XXA Person injured in unspecified motor-vehicle accident, traffic, initial encounter
CPT/HCPCS: 12013; 51702; 70450; 70486; 71260; 72125; 73700; 74177; 80048; 80306; 80307; 83605; 84703; 85025; 85610; 96374; 96375; 96376; 99285; J1170; J2060; J2270; J2405; Q9967

== ENCOUNTER 2022-12-14 21:43 | Emergency (ER) | payer MEDICAID, SELFPAY ==
[2022-12-14 21:43] VITALS: BP 125/82; PULSE 112; RESP 20; TEMP 36.9; O2SAT 97
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
[2022-12-14 22:00] LABS: Basophils % 0.3 %; Eosinophils # 0.1 10^3/uL (0.0-0.8); Eosinophils % 0.4 %; Hematocrit 40.6 % (36-47); Lymphocytes # 2.4 10^3/uL (0.8-4.8); Lymphocytes % 21.2 %; Mean Corpuscular HGB Conc 33.5 g/dL (30-55); Mean Corpuscular Hemoglobin 30.2 pg (27-33); Mean Corpuscular Volume 90.2 fl (85-98); Monocytes # 0.4 10^3/uL (0.2-0.9); Monocytes % 3.6 %; Neutrophils # 8.39 10^3/uL (1.8-7.7); Neutrophils % 74.2 %; Nucleated Red Blood Cells % 0 %; Platelet Count 245 10^3/cmm (157-399); Red Cell Distribution Width 11.7 % (12.1-15.1)
[2022-12-14 22:41] LABS: Anion Gap 14.7 (5-19); Blood Urea Nitrogen 13 mg/dL (6-20); Calcium 9.4 mg/dL (8.5-10.5); Carbon Dioxide 22 mmol/L (22-29); Chloride 104 mmol/L (98-107); Glomerular Filtration Rate 119.9 mL/min (90-130); Glucose 110 mg/dL (65-115); Osmolality Calculated 285 mOsm/kg (285-295); Potassium 3.7 mmol/L (3.5-5.1); Sodium 137 mmol/L (136-145)
[2022-12-14 22:48] LABS: Alcohol Level < 10 mg/dL (0-10)
[2022-12-14] MEDS: iohexol 350 mg/mL 500 mL Btl (per mL) IV (22:52)
[2022-12-14 23:18] VITALS: BP 134/73; PULSE 115; RESP 16; O2SAT 100
== END 2022-12-14 23:21 | disposition home or self-care (01) ==
PROVIDERS: Emergency Provider Emergency Medicine
DX: Z04.1 Encounter for examination and observation following transport accident (principal); F17.290 Nicotine dependence, other tobacco product, uncomplicated; F17.210 Nicotine dependence, cigarettes, uncomplicated; V89.2XXA Person injured in unspecified motor-vehicle accident, traffic, initial encounter; Y35.893A Legal intervention involving other specified means, suspect injured, initial encounter
CPT/HCPCS: 36415; 70450; 71260; 72125; 74177; 80048; 80307; 85025; 99285; Q9967

== ENCOUNTER 2022-12-26 14:03 | Emergency (ER) | payer MEDICAID, SELFPAY ==
--- NOTE | 2022-12-26 14:06 | ECG_ITS ---
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 Measurements Intervals [place] Rate: 102 P: 69 ME: 152 QRS: 71 QRSD: 88 T: 63 QT: 329 QTc: 429 Interpretive Statements SINUS TACHYCARDIA ABNORMAL RHYTHM ECG Compared to ECG 10/02/2022 21:08:10 No significant changes Electronically Signed On 12-26-2022 17:42:57 CDT by Anca Phillip M.D. [id number] f
--- NOTE | 2022-12-26 14:06 | XRR_ITS ---
PROCEDURE INFORMATION: Exam: XR Chest Exam date and time: 12/26/2022 3:18 PM Age: 27 years old Clinical indication: Pain; Chest pressure; Additional info: Cxp TECHNIQUE: Imaging protocol: Radiologic exam of the chest. Views: 1 view. COMPARISON: CT chest abdpel w/*[id number] 12/14/2022 10:39 PM FINDINGS: Lungs: Unremarkable. No consolidation. Pleural spaces: Unremarkable. No pleural effusion. No pneumothorax. Heart/Mediastinum: Unremarkable. No cardiomegaly. Bones/joints: Slight thoracic scoliosis. Soft tissues: No significant change with prior chest film of 08/08/2017. XR/XR chest 1V portable [id number] IMPRESSION: Single-view chest is without acute cardiopulmonary abnormality.
--- NOTE | 2022-12-26 14:07 | W.ED.CHESTPA ---
HPI - Chest Pain General: Chief Complaint: Chest Pain Stated Complaint: Chest pain Time Seen by Provider: 12/26/22 14:06 History of Present Illness: 27-year-old female presents emergency department with complaints of vague generalized chest pain that she states is a 2 out of 10. She is currently incarcerated in the local custodial and is accompanied by the [facility]. She states that she feels like the chest discomfort is a 4 out of 10 pressure that does not radiate. She denies nausea vomiting dizziness or lightheaded feeling. She denies shortness of breath or diaphoresis. She states she has not had any thing like this in the past. She denies any significant previous cardiac history. She states nothing makes her pain better nothing makes the pain worse. Review of Systems General: Reports: 10 or more systems reviewed and unremarkable except in HPI and below Card: Reports: chest pain Psych: Reports: anxiety [facility] ED PFS: Medical History (Updated 01/03/23 @ 00:02 by SHANTELL Lemons) Asthma Surgical History H/O knee surgery 2004-Performed in [place], [place] H/O oral surgery 2016- Performed in [place], [place] 2009- Performed in [place] Social History Smoking and tobacco/nicotine status: current every day tobacco/nicotine user cigarettes and e-cigarettes Physical Exam Narrative: EXAM NARRATIVE: Constitutional: the patient appears well nourished and with normal developement. Vital signs reviewed as documented. HENMT: Normocephalic, atraumatic. Extermal ears with normal appearance without drainage. Nose without drainage, normal appearance. Mucus membranes moist. Neck is supple, No jugular venous distension, trachea is midline, no appreciable carotid bruits. No lymphadenopathy. No meningeal signs. Flexion, extension and lateral rotation is without pain. Eyes: Pupils are equal, round, reactive to light and accomidation. No scleral icterus. Extra-ocular movement are intact. Thorax is symmetrical and with equal rise and fall with respirations. Resp: Lungs are clear to auscultation. No wheezes, rales, crackles or ronchi at pesent. Cardio: Regular rate and rhythm. Positive S1, S2. No appreciable murmurs, rubs or gallops. GI: Abdominal exam reveals normal bowel sounds to all quadrants. No organomegaly. No obvious palpable masses noted. No hepatomegaly appreciated. Soft, nontender to palpation. Extremity: Extremities are non-edematous and both femoral and pedal pulses are 2+ and equal bilaterally. Moves all extremities well, sensation in all extremities. Neuro: Alert and oriented x4, person, place, time and situation. Cranial nerves II through XII are grossly intact, there is no focal neurological deficits that I can appreciate at present. Motor strength in the upper and lower extremities are equal and bilateral 5/5. Psych: Cooperative, calm, normal thought process, appropriate judgment. Skin: No lesions, rashes. No gross abnormalities noted. Back: Symmetrical, no obvious deformity, No CVA tenderness Const: COMMON NORMALS: no acute distress, patient oriented x3 and alert HENMT: COMMON NORMALS: normocephalic and atraumatic HEAD & SCALP: normocephalic and atraumatic Neuro: COMMON NORMALS: patient oriented x3 SENSORIUM/ORIENTATION: Yes alert Course Vital Signs: Vital signs: Vital Signs Temperature 98.0 F 12/26/22 14:10 Pulse Rate 100 12/26/22 16:01 Respiratory Rate 16 12/26/22 16:01 Blood Pressure 110/66 12/26/22 16:01 Pulse Oximetry 100 12/26/22 16:01 Oxygen Delivery Me thod Room Air 12/26/22 15:56 MDM - Chest Pain Medical Decision Making Physical exam completed and documented. I will obtain laboratory evaluation to include a CBC and CMP as well as twelve-lead EKG for evaluation. Medical Records I reviewed the patient's medical records. Lab Data I reviewed the patient's lab results. 12/26/22 14:06 12/26/22 14:06 Radiology Impressions Chest X-Ray 12/26/22 14:06 IMPRESSION: Single-view chest is without acute cardiopulmonary abnormality. Laboratory Results WBC 8.70 10^3/uL (3.29-11.43) 12/26/22 14:06 RBC 4.51 10^6/uL (3.85-5.65) 12/26/22 14:06 Hgb 13.60 g/dL (11.27-16.99) 12/26/22 14:06 Hct 42.4 % (36-47) 12/26/22 14:06 MCV 94.0 fl (85-98) 12/26/22 14:06 MCH 30.2 pg (27-33) 12/26/22 14:06 MCHC 32.1 g/dL (30-55) 12/26/22 14:06 RDW 11.8 % (12.1-15.1) L 12/26/22 14:06 Plt Count 302 10^3/cmm (157-399) 12/26/22 14:06 MPV 10.3 fL (7.4-10.4) 12/26/22 14:06 Neut % (Auto) 61.9 % 12/26/22 14:06 Lymph % (Auto) 29.3 % 12/26/22 14:06 [place] % (Auto) 5.7 % 12/26/22 14:06 Eos % (Auto) 1.1 % 12/26/22 14:06 Baso % (Auto) 0.6 % 12/26/22 14:06 Neut # (Auto) 5.38 10^3/uL (1.8-7.7) 12/26/22 14:06 Lymph # (Auto) 2.6 10^3/uL (0.8-4.8) 12/26/22 14:06 [place] # (Auto) 0.5 10^3/uL (0.2-0.9) 12/26/22 14:06 Eos # (Auto) 0.1 10^3/uL (0.0-0.8) 12/26/22 14:06 Baso # (Auto) 0.1 10^3/uL (0.0-0.1) 12/26/22 14:06 Nucleated RBC % (auto) 0 % 12/26/22 14:06 Nucleated RBCs # 0.0 /100WBC 12/26/22 14:06 Sodium 140 mmol/L (136-145) 12/26/22 14:06 Potassium 4.2 mmol/L (3.5-5.1) 12/26/22 14:06 Chloride 102 mmol/L (98-107) 12/26/22 14:06 Carbon Dioxide 28 mmol/L (22-29) 12/26/22 14:06 Anion Gap 14.2 (5-19) 12/26/22 14:06 BUN 20 mg/dL (6-20) 12/26/22 14:06 Creatinine 0.6 mg/dL (0.5-0.9) 12/26/22 14:06 GFR Calculation 119.9 mL/min (90-130) 12/26/22 14:06 Glucose 118 mg/dL (65-115) H 12/26/22 14:06 Calculated Osmolality 294 mOsm/kg (285-295) 12/26/22 14:06 Calcium 9.4 mg/dL (8.5-10.5) 12/26/22 14:06 Total Bilirubin 0.2 mg/dL (0.15-1.2) 12/26/22 14:06 AST 18 U/L (0-32) 12/26/22 14:06 ALT 18 U/L (0-33) 12/26/22 14:06 Alkaline Phosphatase 120 U/L (35-105) H 12/26/22 14:06 Troponin T Baseline < 6 ng/L (0-10) 12/26/22 14:06 Total Protein 7.5 g/dL (6.6-8.7) 12/26/22 14:06 Albumin 4.8 g/dL (3.5-5.2) 12/26/22 14:06 Globulin 2.7 g/dL (1.3-4.6) 12/26/22 14:06 HCG, Qual Negative (Negative) 12/26/22 14:47 Urine Color Yellow (Yellow) 12/26/22 14:47 Urine Appearance Clear (CLEAR) 12/26/22 14:47 Urine pH 7 (5-7) 12/26/22 14:47 Ur Specific [place] 1.015 (1.005-1.030) 12/26/22 14:47 Urine Protein Neg (Negative) 12/26/22 14:47 Urine Glucose (UA) Norm (Normal) 12/26/22 14:47 Urine Ketones Negative (Negative) 12/26/22 14:47 Urine Blood Neg (Negative) 12/26/22 14:47 Urine Nitrate Negative (Negative) 12/26/22 14:47 Urine Bilirubin Neg (Negative) 12/26/22 14:47 Urine Urobilinogen Norm mg/dL (Negative) 12/26/22 14:47 Ur Leukocyte Esterase Negative (Negative) 12/26/22 14:47 Urine Opiates Screen Negative ng/mL (Negative) 12/26/22 14:47 Ur Barbiturates Screen Negative ng/mL (Negative) 12/26/22 14:47 Ur Phencyclidine Scrn Negative ng/mL (Negative) 12/26/22 14:47 Ur Amphetamines Screen Negative ng/mL (Negative) 12/26/22 14:47 U Benzodiazepines Scrn Negative ng/mL (Negative) 12/26/22 14:47 Urine Cocaine Screen Negative ng/mL (Negative) 12/26/22 14:47 U Marijuana (THC) Screen Negative ng/mL (Negative) 12/26/22 14:47 All radiology interpretation(s) finalized by discharge Discharge Plan Discharge Patient Disposition: Home Clinical Impression: Non-cardiac chest pain Condition: Stable Prescriptions: No Action naproxen [Naprosyn] 500 mg tablet 500 mg PO BID PRN (Reason: pain) Qty: 20 0RF albuterol sulfate [Ventolin HFA] 90 mcg/actuation Hfa Aerosol Inhaler 2 puff INHALATION QID PRN (Reason: Shortness Of Breath) PNV cmb#95-ferrous fumarate-FA [ Multivitamins] 28 mg iron- 800 mcg Tablet 1 tab PO DAILY lorazepam [Ativan] 0.5 mg Tablet 0.5 mg PO TID PRN (Reason: Anxiety) Discharge Orders: Discharge ED (Routine); Ordered 12/26/22 Ordered By: Alex Hernandez Discharge Diet: Advance as tolerated Discharge Activity: Resume usual activity Coding Level of Care Code ED Journeyman Pipefitter for Peter Loja
[2022-12-26 14:10] VITALS: BP 123/78; PULSE 109; RESP 14; TEMP 36.7; O2SAT 100
[2022-12-26 14:17] LABS: Basophils # 0.1 10^3/uL (0.0-0.1); Basophils % 0.6 %; Eosinophils # 0.1 10^3/uL (0.0-0.8); Eosinophils % 1.1 %; Hematocrit 42.4 % (36-47); Lymphocytes # 2.6 10^3/uL (0.8-4.8); Lymphocytes % 29.3 %; Mean Corpuscular HGB Conc 32.1 g/dL (30-55); Mean Corpuscular Hemoglobin 30.2 pg (27-33); Mean Platelet Volume 10.3 fL (7.4-10.4); Monocytes # 0.5 10^3/uL (0.2-0.9); Monocytes % 5.7 %; Neutrophils # 5.38 10^3/uL (1.8-7.7); Neutrophils % 61.9 %; Nucleated Red Blood Cells % 0 %; Platelet Count 302 10^3/cmm (157-399); Red Blood Count 4.51 10^6/uL (3.85-5.65); Red Cell Distribution Width 11.8 % (12.1-15.1)
[2022-12-26 14:39] LABS: Troponin(5th) Baseline < 6 ng/L (0-10)
[2022-12-26 14:40] LABS: Alanine Aminotransferase 18 U/L (0-33); Albumin Level 4.8 g/dL (3.5-5.2); Alkaline Phosphatase 120 U/L (35-105); Anion Gap 14.2 (5-19); Aspartate Amino Transferase 18 U/L (0-32); Blood Urea Nitrogen 20 mg/dL (6-20); Calcium 9.4 mg/dL (8.5-10.5); Carbon Dioxide 28 mmol/L (22-29); Chloride 102 mmol/L (98-107); Globulin 2.7 g/dL (1.3-4.6); Glomerular Filtration Rate 119.9 mL/min (90-130); Glucose 118 mg/dL (65-115); Osmolality Calculated 294 mOsm/kg (285-295); Potassium 4.2 mmol/L (3.5-5.1); Sodium 140 mmol/L (136-145); Total Bilirubin 0.2 mg/dL (0.15-1.2); Total Protein 7.5 g/dL (6.6-8.7)
[2022-12-26 14:57] LABS: Add Urine Microscopic? NO; Charge for UA Resulting for Rev
[2022-12-26 15:06] LABS: Bilirubin Urine Neg (Negative); Blood Urine Neg (Negative); Glucose Urine UA Norm (Normal); Ketones Urine Negative (Negative); Leukocyte Esterase Urine Negative (Negative); Nitrate Urine Negative (Negative); Protein Urine Neg (Negative); Specific Gravity, Urine 1.015 (1.005-1.030); Urine Appearance Clear (CLEAR); Urine Color Yellow (Yellow); Urobilinogen Urine Norm (Negative); pH Urine 7 (5-7)
[2022-12-26 15:15] LABS: Amphetamines Screen Urine Negative (Negative); Barbiturates Screen Urine Negative (Negative); Benzodiazepines Screen Urine Negative (Negative); Cocaine Screen Urine Negative (Negative); Opiate Screen Urine Negative (Negative); PCP Screen Urine Negative (Negative); THC Screen Urine Negative (Negative)
[2022-12-26 15:19] LABS: HCG Qualitative Urine. Negative (Negative)
[2022-12-26 15:49] VITALS: BP 110/66; PULSE 102; RESP 16; O2SAT 100
[2022-12-26 15:56] VITALS: O2SAT 100
[2022-12-26 16:01] VITALS: BP 110/66; PULSE 100; RESP 16; O2SAT 100
== END 2022-12-26 16:01 | disposition home or self-care (01) ==
PROVIDERS: Emergency Provider Internal Medicine
DX: R07.89 Other chest pain (principal); F17.290 Nicotine dependence, other tobacco product, uncomplicated; F17.210 Nicotine dependence, cigarettes, uncomplicated
CPT/HCPCS: 51701; 71045; 80053; 80306; 81003; 81025; 84484; 85025; 93005; 99285